=== PATIENT | female | born 1980 | race African-American/Black ===

== ENCOUNTER 2016-03-16 08:00 | Emergency (ER) | payer OTHER ==
[2016-03-16 08:12] VITALS: TEMP 98; BMI 21.6
--- NOTE | 2016-03-16 09:08 | PDOC ---
History of Present Illness - General Chief Complaint: Chest Pain Stated Complaint: CHEST PAIN Time Seen by Provider: 03/16/16 08:34 History Source: Patient Exam Limitations: No Limitations - History of Present Illness Initial Comments: CHIEF COMPLAINT: 36 y/o afebrile female with no significant PMH c/o chest pain this morning. HISTORY OF PRESENT ILLNESS: The patient states while going to the bathroom this morning she began feeling sharp pain in her chest and points to her epigastric region. She states the pain travels up her sternum. She denies dizziness, [place], f/c, n/v/d, SOB, cough, abd pain, back pain, hematuria, dysuria. Vital signs on arrival are within normal limits. REVIEW OF SYSTEMS: GENERAL/CONSTITUTIONAL: No fever/chills. No weakness. No weight change. HEAD, EYES, EARS, NOSE AND THROAT: No change in vision. No ear pain or discharge. No sore throat. CARDIOVASCULAR: +chest pain. No shortness of breath. RESPIRATORY: No cough, wheezing, or hemoptysis. GASTROINTESTINAL: No abd pain, nausea, vomiting, diarrhea. GENITOURINARY: No dysuria, frequency, or change in urination. MUSCULOSKELETAL: No joint or muscle swelling or pain. No neck or back pain. SKIN: No rash or easy bruising. NEUROLOGIC: No headache, vertigo, loss of consciousness, or loss of sensation. PSYCHIATRIC: No depression or anxiety. ENDOCRINE: No increased thirst. No abnormal weight change. HEMATOLOGIC/LYMPHATIC: No anemia, easy bleeding, or history of blood clots. ALLERGIC/IMMUNOLOGIC: No hives or skin allergy. No latex allergy. PHYSICAL EXAM: GENERAL: The patient is awake, alert, and fully oriented, in no acute distress. She is sleeping in the ER bed. HEAD: Normal with no signs of trauma. ENT: Pupils equal, round and reactive to light, extraocular movements intact, sclera anicteric, conjunctiva clear. Neck supple. LUNGS: Clear to auscultation bilaterally. Normal excursion. No respiratory distress or use of accessory muscles. CHEST: Reproducible pain with palpation of anterior sternum and epigastric region. CV: RRR, S1/S2, no MRG. Cap refill < 2 sec. ABDOMEN: Soft, non-distended, non-tender even to deep palpation, no hepatomegaly or splenomegaly, no masses. EXTREMITIES: Normal range of motion, no edema. NEUROLOGICAL: Normal speech, normal gait. CN II-XII grossly intact. PSYCH: Normal mood, normal affect. SKIN: Warm, dry, normal turgor, no rashes or lesions noted. Past History - Past Medical History Allergies/Adverse Reactions: Allergies Allergy/AdvReac Type Severity Reaction Status Date / Time No Known Allergies Allergy Verified 03/16/16 08:10 Home Medications: Ambulatory Orders Vit Calc,Iron,Folic [ Vitamins] 1 each PO DAILY 03/16/16 Anemia: No Asthma: No Cancer: No Cardiac Disorders: No CVA: No COPD: No CHF: No Dementia: No Diabetes: No GI Disorders: No Disorders: No HTN: No Hypercholesterolemia: No Kidney Stones: No Liver Disease: No Suicide Attempt (Hx): No Seizures: No Thyroid Disease: No Other medical history: DENIES. - Reproductive History PID: No - Psycho/Social/Smoking Cessation Hx Anxiety: No Suicidal Ideation: No Smoking History: Current every day smoker Have you smoked in the past 12 months: Yes Number of Cigarettes Smoked Daily: 20 Cigars Per Day: 0 Information on smoking cessation initiated: No 'Breaking Loose' booklet given: 01/23/16 Hx Alcohol Use: No Drug/Substance Use Hx: No Substance Use Type: None Hx Substance Use Treatment: Yes ([facility]) Cardiac Specific PMH - Complaint Specific PMHX Pacemaker: No *Physical Exam - Vital Signs Last Vital Signs Temp Pulse Resp BP Pulse Ox 98 F 70 18 145/77 99 03/16/16 08:07 03/16/16 14:32 03/16/16 14:32 03/16/16 14:32 03/16/16 14:32 Heart Score/ECG Review - ECG Intrepretation Comment:: Twelve-lead EKG was performed and reviewed by Dr. Hope. There is normal sinus rhythm with a normal rate. The axis is normal. The intervals are normal. There are no ST or T wave abnormalities. Impression: Normal twelve-lead EKG ED Treatment Course - ADDITIONAL ORDERS Additional order review: Laboratory Results 03/16/16 14:36 Urine HCG, Qual Negative - Medications Given in the ED: ED Medications Discontinued Medications Generic Name Dose Route Start Last Admin Trade Name Freq PRN Reason Stop Dose Admin Ketorolac Tromethamine 60 mg 03/16/16 15:03 03/16/16 15:28 Toradol Injection - IVPUSH 03/16/16 15:04 Not Given ONCE ONE Ketorolac Tromethamine 30 mg 03/16/16 15:09 03/16/16 15:15 Toradol Injection - IVPUSH 03/16/16 15:10 30 mg ONCE ONE Administration Ranitidine HCl 300 mg 03/16/16 10:47 03/16/16 11:27 Zantac - PO 03/16/16 10:48 300 mg ONCE ONE Administration Medical Decision Making - Medical Decision Making A/P: 36 y/o female with chest pain that appears to be GI related. Plan is as follows: 1. EKG 2. hcg 3. GI cocktail EKG normal Hcg - negative IV toradol ordered The patient states she feels much better and all of her pain has gone. Suspect musculoskeletal chest pain and GERD. Will discharge to home with supportive care instructions. Suggested she return to the ER with any worsening or concerning symptoms. The patient verbalizes understanding of all instructions, has no further questions and is awaiting discharge. *DC/Admit/Observation/Transfer Diagnosis at time of Disposition: Musculoskeletal chest pain, Gastroesophageal reflux disease - Discharge Dispostion Disposition: HOME Condition at time of disposition: Improved - Patient Instructions Printed Discharge Instructions: DI for Musculoskeletal Pain, DI for Atypical Chest Pain, GERD Diet, DI for Gastroesophageal Reflux Disease (GERD) Additional Instructions: Discharge Instructions: -Take tylenol for your chest pain -Take zantac if needed for upper abd pain -Follow up with your doctor within 1 week -Return to the ER immediately with any worsening or concerning symptoms
[2016-03-16] MEDS ORDERED: RANITIDINE HCL 150 MG TABLET (FP) PO ONE (10:47)
[2016-03-16] MEDS ORDERED: RANITIDINE HCL 150 MG TABLET (FP) ONE (11:20)
[2016-03-16 14:33] VITALS: PULSE 70
[2016-03-16] MEDS ORDERED: KETOROLAC TROMETHAMINE 60 MG/2 ML VIAL IVPUSH ONE (15:03)
[2016-03-16] MEDS ORDERED: KETOROLAC TROMETHAMINE 30 MG/1 ML VIAL ONE (15:09)
[2016-03-16] MEDS ORDERED: KETOROLAC TROMETHAMINE 30 MG/1 ML VIAL IVPUSH ONE (15:09)
[2016-03-16 16:46] VITALS: BP 136/68
--- NOTE | 2016-03-17 13:07 | EKG ---
Test Reason : Blood Pressure : / mmHG Vent. Rate : 071 BPM Atrial Rate : 071 BPM P-R Int : 148 ms QRS Dur : 102 ms QT Int : 416 ms P-R-T Axes : 050 044 038 degrees QTc Int : 452 ms NORMAL SINUS RHYTHM WITH SINUS ARRHYTHMIA POSSIBLE LEFT ATRIAL ENLARGEMENT LEFT VENTRICULAR HYPERTROPHY ABNORMAL ECG NO PREVIOUS ECGS AVAILABLE Confirmed by EZIO MORALES MD ([id number]) on 03/17/2016 1:07:18 PM Referred By: Overread By: EZIO MORALES MD
== END 2016-03-16 16:51 | disposition home or self-care (01) ==
LOC: JER 08:00
PROC: 3E0333Z Introduction of Anti-inflammatory into Peripheral Vein, Percutaneous Approach (ICD-10-PCS; principal; 2016-03-16)
DX: K21.9 Gastro-esophageal reflux disease without esophagitis (principal); R07.89 Other chest pain
CPT/HCPCS: 84703; 93005; 93010; 96374; 99285-25

== ENCOUNTER 2016-12-11 14:37 | Emergency (ER) | payer OTHER ==
[2016-12-11 14:46] VITALS: TEMP 98.6; BMI 21.6
--- NOTE | 2016-12-11 15:02 | PDOC ---
History of Present Illness - General Chief Complaint: Wound Infection Stated Complaint: SPIDER BITE Time Seen by Provider: 12/11/16 15:02 - History of Present Illness Initial Comments: 12/11/16 15:02 Ms. German is a 36 yo female with no significant past medical history who presents to the emergency department complaining of a "spider bite" in her upper right thigh. She says that she first noticed a small bite in this location on Thursday that progressed to about 3 inches in diameter. Yesterday she attempted to express fluid and was able to get minimal white pus out of it. She complains of subjective warmth / fevers. The patient denies chest pain, shortness of breath, headache and dizziness. Denies chills, nausea, vomit, diarrhea and constipation. Denies dysuria, frequency, urgency and hematuria. Allergies: NKDA Past surgical history:Denies Past History - Past Medical History Allergies/Adverse Reactions: Allergies Allergy/AdvReac Type Severity Reaction Status Date / Time No Known Allergies Allergy Verified 12/11/16 14:42 Home Medications: Ambulatory Orders Sulfamethoxazole/Trimethoprim [Bactrim Ds -] 1 tab PO BID #20 tablet 12/11/16 Anemia: No Asthma: No Cancer: No Cardiac Disorders: No CVA: No COPD: No CHF: No Dementia: No Diabetes: No GI Disorders: No Disorders: No HTN: No Hypercholesterolemia: No Kidney Stones: No Liver Disease: No Seizures: No Thyroid Disease: No - Reproductive History PID: No - Suicide/Smoking/Psychosocial Hx Smoking History: Current every day smoker Have you smoked in the past 12 months: Yes Number of Cigarettes Smoked Daily: 20 Cigars Per Day: 0 Information on smoking cessation initiated: No 'Breaking Loose' booklet given: 01/23/16 Hx Alcohol Use: No Drug/Substance Use Hx: No Substance Use Type: None Hx Substance Use Treatment: Yes ([facility]) Review of Systems - Review of Systems Comments:: 12/11/16 15:02 GENERAL/CONSTITUTIONAL: No fever or chills. No weakness. HEAD, EYES, EARS, NOSE AND THROAT: No change in vision. No ear pain or discharge. No sore throat. CARDIOVASCULAR: No chest pain or shortness of breath RESPIRATORY: No cough, wheezing, or hemoptysis. GASTROINTESTINAL: No nausea, vomiting, diarrhea or constipation. GENITOURINARY: No dysuria, frequency, or change in urination. MUSCULOSKELETAL: +Painful Right leg infection. No joint or muscle swelling. No neck or back pain. SKIN: No rash NEUROLOGIC: No headache, vertigo, loss of consciousness, or change in strength/ sensation. ENDOCRINE: No increased thirst. No abnormal weight change HEMATOLOGIC/LYMPHATIC: No anemia, easy bleeding, or history of blood clots. ALLERGIC/IMMUNOLOGIC: No hives or skin allergy. *Physical Exam - Vital Signs Last Vital Signs Temp Pulse Resp BP Pulse Ox 98.6 F 89 20 132/78 99 12/11/16 14:43 12/11/16 14:43 12/11/16 14:43 12/11/16 14:43 12/11/16 14:43 - Physical Exam Comments: 12/11/16 15:02 GENERAL: Awake, alert, and fully oriented, in no acute distress HEAD: No signs of trauma, normocephalic, atraumatic EYES: PERRLA, EOMI, sclera anicteric, conjunctiva clear ENT: Auricles normal inspection, hearing grossly normal, nares patent, oropharynx clear without exudates. Moist mucosa NECK: Normal ROM, supple, no lymphadenopathy, JVD, or masses LUNGS: No distress, speaks full sentences, clear to auscultation bilaterally HEART: Regular rate and rhythm, normal S1 and S2, no murmurs, rubs or gallops, peripheral pulses normal and equal bilaterally. ABDOMEN: Soft, nontender, normoactive bowel sounds. No guarding, no rebound. No masses EXTREMITIES: +Right upper thigh fluctuant abscess measuring approximately 3 inches in diameter on the lateral portion of the RLE. Warm to touch. Normal inspection, Normal range of motion, no edema. No clubbing or cyanosis. NEUROLOGICAL: Cranial nerves II through XII grossly intact. Normal speech, normal gait, no focal sensorimotor deficits SKIN: Warm, Dry, normal turgor, no rashes or lesions noted. Procedures - Incision and Drainage I&D Site: Right: Leg Anesthesia: 1% Lidocaine Volume(ml): 4 Iodinated Packin/ in Medical Decision Making - Medical Decision Making 12/11/16 15:47 Ms. German presents for evaluation of her leg abscess. *DC/Admit/Observation/Transfer Diagnosis at time of Disposition: wound - Discharge Dispostion Disposition: HOME - Prescriptions Prescriptions: Sulfamethoxazole/Trimethoprim [Bactrim Ds -] 1 tab PO BID #20 tablet - Referrals Referrals: STAFF,NOT ON [Primary Care Provider] -
--- NOTE | 2016-12-11 15:04 | PDOC ---
History of Present Illness - General Chief Complaint: Wound Infection Stated Complaint: SPIDER BITE Time Seen by Provider: 12/11/16 15:02 Past History - Past Medical History Allergies/Adverse Reactions: Allergies Allergy/AdvReac Type Severity Reaction Status Date / Time No Known Allergies Allergy Verified 12/11/16 14:42 Home Medications: Ambulatory Orders Vit Calc,Iron,Folic [ Vitamins] 1 each PO DAILY 03/16/16 Ondansetron [Zofran *Odt*] 8 mg SL TID PRN #21 od.tablet 07/25/16 Anemia: No Asthma: No Cancer: No Cardiac Disorders: No CVA: No COPD: No CHF: No Dementia: No Diabetes: No GI Disorders: No Disorders: No HTN: No Hypercholesterolemia: No Kidney Stones: No Liver Disease: No Seizures: No Thyroid Disease: No - Reproductive History PID: No - Suicide/Smoking/Psychosocial Hx Smoking History: Current every day smoker Have you smoked in the past 12 months: Yes Number of Cigarettes Smoked Daily: 20 Cigars Per Day: 0 Information on smoking cessation initiated: No 'Breaking Loose' booklet given: 01/23/16 Hx Alcohol Use: No Drug/Substance Use Hx: No Substance Use Type: None Hx Substance Use Treatment: Yes ([facility]) *Physical Exam - Vital Signs Last Vital Signs Temp Pulse Resp BP Pulse Ox 98.6 F 89 20 132/78 99 12/11/16 14:43 12/11/16 14:43 12/11/16 14:43 12/11/16 14:43 12/11/16 14:43
[2016-12-11] MEDS ORDERED: LIDOCAINE HCL 1%, 10 MG/ML (20ML VIAL) ONE (16:23)
[2016-12-11] MEDS ORDERED: LIDOCAINE HCL 1%, 10 MG/ML (50 mL VIAL) SQ ONE (16:23)
[2016-12-11] MEDS ORDERED: SULFAMETHOXAZOLE/TRIMETHOPRIM 400MG/80MG S.S. TABLET PO ONE (17:29)
[2016-12-11] MEDS ORDERED: SULFAMETHOXAZOLE/TRIMETHOPRIM 800MG/160MG D.S. TABLET ONE (17:30)
[2016-12-11 17:52] VITALS: BP 121/68; PULSE 72
--- NOTE | 2016-12-13 14:09 | PDOC ---
Attending Attestation - Resident Resident Name: Devon Rivera - HPI HPI: 12/13/16 14:05 Pt presents to the ED complaining of abscess to the R flank. Denies systemic complaints. - Physicial Exam PE: 12/13/16 14:06 Agree with above exam. 3 cm abscess to left flank - Medical Decision Making 12/13/16 14:07 pt presented to the ED with abscess without signs of systemic infection. I and D performed in the Ed. Will discharge home.
== END 2016-12-11 17:52 | disposition home or self-care (01) ==
LOC: JER 14:37
PROC: 0H9KXZZ Drainage of Right Lower Leg Skin, External Approach (ICD-10-PCS; principal; 2016-12-11)
DX: L02.415 Cutaneous abscess of right lower limb (principal); W57.XXXA Bitten or stung by nonvenomous insect and other nonvenomous arthropods, initial encounter; Y93.89 Activity, other specified; Y92.89 Other specified places as the place of occurrence of the external cause; Y99.8 Other external cause status
CPT/HCPCS: 99281-25

== ENCOUNTER 2018-09-13 10:54 | Inpatient (IN) | payer OTHER ==
[2018-09-13 13:04] VITALS: BMI 22.9
--- NOTE | 2018-09-13 15:07 | HP ---
COWS - Scale Resting Pulse: 0= NC 80 or Below Sweatin= No chills or Flushing Restless Observation: 1= Difficult to Sit Still Pupil Size: 0= Normal to Room Light Bone or Joint Aches: 1= Mild Discomfort Runny Nose/ Eye Tearin= None GI Upset > 30mins: 1= Stomach Cramp Tremor Observation: 2= Slight Tremor Visible Yawning Observation: 1= 1-2x During Session Anxiety or Irritability: 1=Feels Anxious/Irritable Goose Flesh Skin: 3=Piloerection COWS Score: 10 CIWA Score - Admission Criteria [facility] Guidelines: Admission for Medically Managed Detox: Requires at least one of the followin. CIWA greater than 12 2. Seizures within the past 24 hours 3. Delirium tremens within the past 24 hours 4. Hallucinations within the past 24 hours 5. Acute intervention needed for co occurring medical disorder 6. Acute intervention needed for co occurring psychiatric disorder 7. Severe withdrawal that cannot be handled at a lower level of care (continued vomiting, continued diarrhea, abnormal vital signs) requiring intravenous medication and/or fluids 8. Admission ROS [facility] Chief Complaint: 38 y/o with hx ovarian CA, eczema, who presents for detox from heroin. Last use of heroin was this AM. Uses 20 bags/time. Spends 200-300 dollars at a time for it. Used intranasally. Doesn't use intravenously. Longest sobriety five years. Has never overdosed; no suicidal or homicide attempts previously. Uses two bags of marijuana a day. PMH: ovarin CA, eczema PsxH: none meds: none allergies: NKDA FH: none SH: lives in a private house in [place]. smokes 1 ppd cigarettes x 10 yrs. denies alcohol use. uses heroin as above Allergies/Adverse Reactions: Allergies Allergy/AdvReac Type Severity Reaction Status Date / Time No Known Allergies Allergy Verified 09/13/18 12:59 History of Present Illness: 38 y/o F with hx ovarian CA ( 1 round of chemotherapy in past; d/c due to side effect) and eczema who presents for heroin detox. Was in detox last in 2017 and rehab in 2017. Exam Limitations: No Limitations - Ebola screening Have you traveled outside of the country in the last 21 days: No Have you had contact with anyone from an Ebola affected area: No Do you have a fever: No - Review of Systems Constitutional: Loss of Appetite EENT: reports: No Symptoms Reported Respiratory: reports: No Symptoms reported Cardiac: reports: No Symptoms Reported GI: reports: No Symptoms Reported : reports: No Symptoms Reported Musculoskeletal: reports: No Symptoms Reported Integumentary: reports: Dryness Neuro: reports: No Symptoms reported Endocrine: reports: No Symptoms Reported Hematology: reports: No Symptoms Reported Psychiatric: reports: Agitated, Anxious Patient History - Patient Medical History Hx Anemia: No Hx Asthma: No Hx Chronic Obstructive Pulmonary Disease (COPD): No Hx Cancer: No Hx Cardiac Disorders: No Hx Congestive Heart Failure: No Hx Hypertension: No Hx Hypercholesterolemia: No Hx Pacemaker: No HX Cerebrovascular Accident: No Hx Seizures: No Hx Dementia: No Hx Diabetes: No Hx Gastrointestinal Disorders: No Hx Liver Disease: No Hx Genitourinary Disorders: No Hx Sexually Transmitted Disorders: No Hx Renal Disease (ESRD): No Hx Thyroid Disease: No Hx Human Immunodeficiency Virus (HIV): No Hx Hepatitis C: No Hx Depression: Yes (DENIES/ SI/HI) Hx Suicide Attempt: No Hx Bipolar Disorder: No Hx Schizophrenia: No Other Medical History: ovarian cancer, eczema - Patient Surgical History Past Surgical History: No - PPD History Documented Results: Negative w/o proof Date: 01/25/16 Results: 0mm PPD to be Administered?: No - Reproductive History Patient is a Female of Child Bearing Age (11 -55 yrs old): Yes Last Menstrual Period: 08/14/18 Patient : No - Smoking Cessation Smoking history: Current every day smoker Have you smoked in the past 12 months: Yes Aproximately how many cigarettes per day: 20 Cigars Per Day: 0 Hx Chewing Tobacco Use: No Initiated information on smoking cessation: Yes 'Breaking Loose' booklet given: 09/13/18 - Substance & Tx. History Hx Alcohol Use: No Hx Substance Use: Yes Substance Use Type: Heroin, Marijuana Hx Substance Use Treatment: Yes (at [facility] for detox and rehab 2017 ) - Substances abused Heroin Substance route: Inhalation Frequency: Daily Amount used: 40 bags Age of first use: 20 Date of last use: 09/13/18 Marijuana/Hashish Substance route: Smoking Frequency: Daily Amount used: 2 bags Age of first use: 20 Date of last use: 09/12/18 Family Disease History - Family Disease History Family History: Denies Family Disease History: Other: Father ( AIDS), Mother (HIV) Admission Physical Exam [facility] - Vital Signs Vital Signs: Vital Signs - 24 hr 09/13/18 13:00 Temperature 97 F L Pulse Rate 79 Respiratory 20 Rate Blood Pressure 127/85 - Physical General Appearance: Yes: Within Normal Limits, Thin, Irritable, Anxious HEENTM: Yes: Normocephalic Respiratory: Yes: Within Normal Limits, Other (+poor inspiratory effort) Neck: Yes: Supple Breast: Yes: Breast Exam Deferred Cardiology: Yes: Tachycardia Abdominal: Yes: Within Normal Limits Genitourinary: Yes: Within Normal Limits Back: Yes: Muscle Spasm Musculoskeletal: Yes: full range of Motion Extremities: Yes: Other (+L anterior portion of ankle with minor swelling, TTP) Neurological: Yes: Within Normal Limits Integumentary: Yes: Dry, Warm - Diagnostic (1) Heroin withdrawal Current Visit: Yes Status: Acute (2) Marijuana dependence Current Visit: Yes Status: Acute (3) Ovarian cancer Current Visit: Yes Status: Acute Cleared for Admission [facility] - Detox or Rehab [facility] Level of Care: Medically Managed Detox Regimen/Protocol: Methadone Breathalyzer - Breathalyzer Breathalyzer: 0 Urine Drug Screen - Test Device Lot number: [id number] Expiration date: 05/13/20 - Control Is test valid?: Yes - Results Drug screen NEGATIVE: No Urine drug screen results: THC-Marijuana, ANURADHA-Cocaine, FEN-Fentanyl, MOP-Opiates , BZO-Benzodiazepines Inpatient Rehab Admission - Rehab Decision to Admit Inpatient rehab admission?: No
[2018-09-13] MEDS ORDERED: cloNIDine HCL 0.1 MG TABLET PO PRN (15:16)
[2018-09-13] MEDS ORDERED: IBUPROFEN 400 MG TABLET (FP) PO PRN (15:17)
[2018-09-13] MEDS ORDERED: MENTHOL/PHENOL 1 EACH UD MM PRN (15:17)
[2018-09-13] MEDS ORDERED: BISMUTH SUBSALICYLATE 524 MG/30 ML UD PO PRN (15:17)
[2018-09-13] MEDS ORDERED: ACETAMINOPHEN 325 MG TABLET (FP) PO PRN ×2 (15:17)
[2018-09-13] MEDS ORDERED: MAG HYDROX/AL HYDROX/SIMETH 30 ML UNIT-DOSE CUP PO PRN (15:17)
[2018-09-13] MEDS ORDERED: MAGNESIUM HYDROX 2400MG/30ML ORAL SUSPENSION 30 ML CUP PO PRN (15:17)
[2018-09-13] MEDS ORDERED: MAGNESIUM CITRATE 300 ML BOTTLE PO PRN (15:17)
[2018-09-13] MEDS ORDERED: HYDROCORTISONE 0.5% TOPICAL OINTMENT TUBE TP PRN (15:30)
[2018-09-13] MEDS ORDERED: HYDROCORTISONE 1% TOPICAL OINT 30 GM TUBE TP PRN (16:48)
[2018-09-13] MEDS ORDERED: METHADONE HCL 10 MG TABLET (FOR DETOX USE ONLY) PO ONE (17:00)
[2018-09-13 18:13] LABS: HEMATOCRIT 30.7 % (32.4-45.2); HEMOGLOBIN 9.9 GM/dL (10.7-15.3); MCH 25.3 pg (25.7-33.7); MCHC 32.4 g/dl (32.0-36.0); MEAN CELL VOLUME 78.3 fl (80-96); MEAN PLT VOLUME 7.3 fl (7.5-11.1); PLATELET COUNT 219 K/MM3 (134-434); RBC 3.92 M/mm3 (3.60-5.2); WHITE BLOOD COUNT 3.8 K/mm3 (4.0-10.0)
[2018-09-13 18:21] LABS: ALBUMIN 3.9 g/dl (3.4-5.0); BILIRUBIN,TOTAL 0.5 mg/dL (0.2-1); BLOOD UREA NITROGEN 10.2 mg/dL (7-18); CALCIUM 8.8 mg/dL (8.5-10.1); CREATININE 0.8 mg/dL (0.55-1.3); POTASSIUM 3.4 mmol/L (3.5-5.1); TOT PROT 7.5 g/dl (6.4-8.2)
[2018-09-13] MEDS: METHOCARBAMOL 500 MG TABLET PO PRN (22:28)
[2018-09-13] MEDS: MELATONIN 5 MG TABLETS PO PRN (22:28)
[2018-09-13] MEDS: THIAMINE HCL 100 MG TABLET (FP) PO SCH (22:28)
[2018-09-13] MEDS: hydrOXYzine PAMOATE 25 MG CAPSULE (FP) PO PRN (22:28)
[2018-09-14] MEDS ORDERED: METHADONE (DETOX) 20 MG, METHADONE (DETOX) 5 MG PO ONE ×2 (10:00→10:25)
[2018-09-14] MEDS ORDERED: METHADONE HCL 10 MG TABLET (FOR DETOX USE ONLY) ONE (11:17)
[2018-09-14] MEDS ORDERED: METHADONE HCL 5 MG TABLET (FOR DETOX USE ONLY) ONE (11:17)
[2018-09-14] MEDS: PRENATAL VITAMINS W/ FOLIC ACID TABLET (FP) PO SCH (11:29)
--- NOTE | 2018-09-14 13:01 | PN ---
BHS COWS - Scale Resting Pulse: 0= ID 80 or Below Sweatin=Flushed/Facial Moisture Restless Observation: 0= Sits Still Pupil Size: 0= Normal to Room Light Bone or Joint Aches: 1= Mild Discomfort Runny Nose/ Eye Tearin= Nasal Congestion GI Upset > 30mins: 0= None Tremor Observation of Outstretched Hands: 1= Tremor [place], Not Seen Yawning Observation: 1= 1-2x During Session Anxiety or Irritability: 1=Feels Anxious/Irritable Goose Flesh Skin: 0=Smooth Skin COWS Score: 7 BHS Progress Note (SOAP) Subjective: sweats shakes interrupted sleep body aches Objective: 09/14/18 14:32 Vital Signs Temperature 97.5 F L 09/14/18 13:28 Pulse Rate 71 09/14/18 13:28 Respiratory Rate 18 09/14/18 13:28 Blood Pressure 135/87 09/14/18 13:28 O2 Sat by Pulse Oximetry (%) Laboratory Tests 09/13/18 09/13/18 09/13/18 15:30 15:30 15:30 WBC 3.8 L RBC 3.92 Hgb 9.9 L Hct 30.7 L MCV 78.3 L MCH 25.3 L MCHC 32.4 RDW 17.0 H Plt Count 219 D MPV 7.3 L Sodium 137 Potassium 3.4 L Chloride 105 Carbon Dioxide 28 Anion Gap 4 L BUN 10.2 Creatinine 0.8 Est GFR (CKD-EPI)AfAm 109.16 Est GFR (CKD-EPI)NonAf 94.18 Random Glucose 109 H Calcium 8.8 Total Bilirubin 0.5 AST 8 L ALT 18 Alkaline Phosphatase 67 Total Protein 7.5 Albumin 3.9 RPR Titer Nonreactive labs noted potassium minimal low 3.4; 20meq x 2 days aaox3 lying in bed no acute distress Assessment: 09/14/18 14:33 withdrawal sx Plan: continue detox increase fluids
--- NOTE | 2018-09-14 13:22 | PN ---
MARLENY Progress Note Note: i personally present,review,plan for treatment,history and physical examination and concurred and agreed with Dr.Abbi Lozano,patient need inpatient detox,medical manage and opiate regimen
--- NOTE | 2018-09-14 13:47 | EKG ---
Test Reason : Blood Pressure : / mmHG Vent. Rate : 069 BPM Atrial Rate : 069 BPM P-R Int : 182 ms QRS Dur : 104 ms QT Int : 406 ms P-R-T Axes : 051 045 027 degrees QTc Int : 435 ms NORMAL SINUS RHYTHM POSSIBLE LEFT ATRIAL ENLARGEMENT LEFT VENTRICULAR HYPERTROPHY ABNORMAL ECG WHEN COMPARED WITH ECG OF 16-MAR-2016 08:10, NO SIGNIFICANT CHANGE WAS FOUND Confirmed by MD SOLEDAD, VIKTOR ([id number]) on 09/14/2018 1:47:17 PM Referred By: CHAS ROB Confirmed By:VIKTOR ROWE MD
[2018-09-14] MEDS: POTASSIUM CHLORIDE TABS 20 MEQ TABLET.ER (FP) PO SCH (15:14)
[2018-09-14] MEDS: THIAMINE HCL 100 MG TABLET (FP) PO SCH (22:14)
[2018-09-14] MEDS: METHOCARBAMOL 500 MG TABLET PO PRN (22:14)
[2018-09-14] MEDS: hydrOXYzine PAMOATE 25 MG CAPSULE (FP) PO PRN (22:15)
[2018-09-14] MEDS: MELATONIN 5 MG TABLETS PO PRN (22:15)
[2018-09-15 09:13] LABS: EPI CELLS 30.5 /HPF (0-5/HPF); HYALINE CASTS 23 /lpf (0-8); URINE APPEARANCE TURBID; URINE BACTERIA 215.3 /hpf (NEGATIVE); URINE BILIRUBIN NEGATIVE (NEGATIVE); URINE COLOR DK YELLOW; URINE GLUCOSE (UA) NEGATIVE (NEGATIVE); URINE KETONE NEGATIVE (NEGATIVE); URINE LEUK ESTERASE TRACE (NEGATIVE); URINE NITRITE NEGATIVE (NEGATIVE); URINE PROTEIN NEGATIVE (NEGATIVE); URINE RBC 5 /hpf (0-4); URINE UROBILINOGEN 0.2 mg/dL (0.2-1.0); URINE WBC 16 /hpf (0-5)
[2018-09-15 09:31] LABS: URINE CRYSTALS AMOPRPHOUS URATES /hpf
[2018-09-15] MEDS ORDERED: METHADONE HCL 10 MG TABLET (FOR DETOX USE ONLY) PO ONE (10:00)
[2018-09-15] MEDS: POTASSIUM CHLORIDE TABS 20 MEQ TABLET.ER (FP) PO SCH (10:34)
[2018-09-15] MEDS: PRENATAL VITAMINS W/ FOLIC ACID TABLET (FP) PO SCH (10:34)
--- NOTE | 2018-09-15 15:15 | PN ---
BHS COWS - Scale Resting Pulse: 0= CA 80 or Below Sweatin= Chills/Flushing Restless Observation: 0= Sits Still Pupil Size: 0= Normal to Room Light Bone or Joint Aches: 1= Mild Discomfort Runny Nose/ Eye Tearin= Nasal Congestion GI Upset > 30mins: 0= None Tremor Observation of Outstretched Hands: 1= Tremor [place], Not Seen Yawning Observation: 0= None Anxiety or Irritability: 2=Irritable/Anxious Goose Flesh Skin: 0=Smooth Skin (1) COWS Score: 6 BHS Progress Note (SOAP) Subjective: ANXIETY, SWEATS/CHILLS,INTERMITTENT SLEEP. Objective: 09/15/18 15:12 Vital Signs - 24 hr 09/14/18 09/14/18 09/15/18 17:32 21:34 03:30 Temperature 98.4 F 98.2 F Pulse Rate 76 69 Respiratory 18 18 16 Rate Blood Pressure 145/76 137/80 09/15/18 09/15/18 09/15/18 08:27 09:46 13:25 Temperature 99.1 F 97.8 F 96.5 F L Pulse Rate 71 66 80 Respiratory 16 18 18 Rate Blood Pressure 138/79 155/78 146/94 Laboratory Tests 09/13/18 09/13/18 09/13/18 15:30 15:30 15:30 WBC 3.8 L RBC 3.92 Hgb 9.9 L Hct 30.7 L MCV 78.3 L MCH 25.3 L MCHC 32.4 RDW 17.0 H Plt Count 219 D MPV 7.3 L Sodium 137 Potassium 3.4 L Chloride 105 Carbon Dioxide 28 Anion Gap 4 L BUN 10.2 Creatinine 0.8 Est GFR (CKD-EPI)AfAm 109.16 Est GFR (CKD-EPI)NonAf 94.18 Random Glucose 109 H Calcium 8.8 Total Bilirubin 0.5 AST 8 L ALT 18 Alkaline Phosphatase 67 Total Protein 7.5 Albumin 3.9 Urine Color Urine Appearance Urine pH Ur Specific [place] Urine Protein Urine Glucose (UA) Urine Ketones Urine Blood Urine Nitrite Urine Bilirubin Urine Urobilinogen Ur Leukocyte Esterase Urine WBC (Auto) Urine RBC (Auto) Urine Casts (Auto) U Pathogenic Cast Auto U Epithel Cells (Auto) Urine Crystals (Auto) Urine Bacteria (Auto) RPR Titer Nonreactive 09/14/18 08:50 WBC RBC Hgb Hct MCV MCH MCHC RDW Plt Count MPV Sodium Potassium Chloride Carbon Dioxide Anion Gap BUN Creatinine Est GFR (CKD-EPI)AfAm Est GFR (CKD-EPI)NonAf Random Glucose Calcium Total Bilirubin AST ALT Alkaline Phosphatase Total Protein Albumin Urine Color Dk yellow Urine Appearance Turbid Urine pH 5.0 D Ur Specific [place] 1.031 Urine Protein Negative Urine Glucose (UA) Negative Urine Ketones Negative Urine Blood Negative Urine Nitrite Negative Urine Bilirubin Negative Urine Urobilinogen 0.2 Ur Leukocyte Esterase Trace Urine WBC (Auto) 16 Urine RBC (Auto) 5 Urine Casts (Auto) 23 U Pathogenic Cast Auto None seen U Epithel Cells (Auto) 30.5 Urine Crystals (Auto) Amoprphous urates Urine Bacteria (Auto) 215.3 RPR Titer K+ =3.4 Assessment: 09/15/18 15:13 WITHDRAWALS SX BORDERLINE HYPOKALEMIA Plan: CONTINUE DETOX ON [facility]
[2018-09-15] MEDS: THIAMINE HCL 100 MG TABLET (FP) PO SCH (22:17)
[2018-09-15] MEDS: MELATONIN 5 MG TABLETS PO PRN (22:17)
[2018-09-16] MEDS ORDERED: METHADONE HCL 5 MG TABLET (FOR DETOX USE ONLY) ONE (09:12)
[2018-09-16] MEDS ORDERED: METHADONE HCL 10 MG TABLET (FOR DETOX USE ONLY) ONE (09:13)
[2018-09-16] MEDS ORDERED: METHADONE (DETOX) 10 MG, METHADONE (DETOX) 5 MG PO ONE (10:00)
[2018-09-16] MEDS: POTASSIUM CHLORIDE TABS 20 MEQ TABLET.ER (FP) PO SCH (10:34)
[2018-09-16] MEDS: PRENATAL VITAMINS W/ FOLIC ACID TABLET (FP) PO SCH (10:34)
--- NOTE | 2018-09-16 11:06 | PN ---
BHS COWS - Scale Resting Pulse: 0= [place] 80 or Below Sweatin= Chills/Flushing Restless Observation: 0= Sits Still Pupil Size: 0= Normal to Room Light Bone or Joint Aches: 0= None Runny Nose/ Eye Tearin= None GI Upset > 30mins: 0= None Tremor Observation of Outstretched Hands: 0= None Yawning Observation: 2= >3x During Session Anxiety or Irritability: 2=Irritable/Anxious Goose Flesh Skin: 0=Smooth Skin COWS Score: 5 BHS Progress Note (SOAP) Subjective: c/o chills and irritability. Objective: 09/16/18 11:06 Vital Signs 09/16/18 09/16/18 09/16/18 03:30 06:00 09:36 Temperature 98.2 F 98.1 F Pulse Rate 68 61 Respiratory 18 18 16 Rate Blood Pressure 126/81 134/93 Assessment: 09/16/18 11:06 AOX3, in no acute respiratory distress Full ROM, ambulating in the unit. withdrawal symptoms. Plan: continue detox.
[2018-09-16] MEDS: THIAMINE HCL 100 MG TABLET (FP) PO SCH (22:37)
[2018-09-16] MEDS: MELATONIN 5 MG TABLETS PO PRN (22:37)
[2018-09-16] MEDS: METHOCARBAMOL 500 MG TABLET PO PRN (22:37)
[2018-09-17] MEDS ORDERED: METHADONE HCL 10 MG TABLET (FOR DETOX USE ONLY) PO ONE (10:00)
[2018-09-17] MEDS: PRENATAL VITAMINS W/ FOLIC ACID TABLET (FP) PO SCH (10:31)
--- NOTE | 2018-09-17 11:43 | PN ---
BHS COWS - Scale Resting Pulse: 0= [place] 80 or Below Sweatin= Chills/Flushing Restless Observation: 0= Sits Still Pupil Size: 1= Pupils >than Normal Bone or Joint Aches: 0= None Runny Nose/ Eye Tearin= None GI Upset > 30mins: 0= None Tremor Observation of Outstretched Hands: 1= Tremor [place], Not Seen Yawning Observation: 0= None Anxiety or Irritability: 1=Feels Anxious/Irritable Goose Flesh Skin: 0=Smooth Skin COWS Score: 4 BHS Progress Note (SOAP) Subjective: interrupted sleep, Objective: 09/17/18 11:42 Vital Signs Temperature 97.8 F 09/17/18 06:49 Pulse Rate 55 L 09/17/18 06:49 Respiratory Rate 16 09/17/18 06:49 Blood Pressure 139/68 09/17/18 06:49 O2 Sat by Pulse Oximetry (%) Laboratory Tests 09/13/18 09/13/18 09/13/18 15:30 15:30 15:30 WBC 3.8 L RBC 3.92 Hgb 9.9 L Hct 30.7 L MCV 78.3 L MCH 25.3 L MCHC 32.4 RDW 17.0 H Plt Count 219 D MPV 7.3 L Sodium 137 Potassium 3.4 L Chloride 105 Carbon Dioxide 28 Anion Gap 4 L BUN 10.2 Creatinine 0.8 Est GFR (CKD-EPI)AfAm 109.16 Est GFR (CKD-EPI)NonAf 94.18 Random Glucose 109 H Calcium 8.8 Total Bilirubin 0.5 AST 8 L ALT 18 Alkaline Phosphatase 67 Total Protein 7.5 Albumin 3.9 Urine Color Urine Appearance Urine pH Ur Specific [place] Urine Protein Urine Glucose (UA) Urine Ketones Urine Blood Urine Nitrite Urine Bilirubin Urine Urobilinogen Ur Leukocyte Esterase Urine WBC (Auto) Urine RBC (Auto) Urine Casts (Auto) U Pathogenic Cast Auto U Epithel Cells (Auto) Urine Crystals (Auto) Urine Bacteria (Auto) RPR Titer Nonreactive 09/14/18 08:50 WBC RBC Hgb Hct MCV MCH MCHC RDW Plt Count MPV Sodium Potassium Chloride Carbon Dioxide Anion Gap BUN Creatinine Est GFR (CKD-EPI)AfAm Est GFR (CKD-EPI)NonAf Random Glucose Calcium Total Bilirubin AST ALT Alkaline Phosphatase Total Protein Albumin Urine Color Dk yellow Urine Appearance Turbid Urine pH 5.0 D Ur Specific [place] 1.031 Urine Protein Negative Urine Glucose (UA) Negative Urine Ketones Negative Urine Blood Negative Urine Nitrite Negative Urine Bilirubin Negative Urine Urobilinogen 0.2 Ur Leukocyte Esterase Trace Urine WBC (Auto) 16 Urine RBC (Auto) 5 Urine Casts (Auto) 23 U Pathogenic Cast Auto None seen U Epithel Cells (Auto) 30.5 Urine Crystals (Auto) Amoprphous urates Urine Bacteria (Auto) 215.3 RPR Titer pt aox3 , lying in bed in nad. Assessment: 09/17/18 11:44 withdrawal sx's h/o ovarian ca anemia Plan: cont. detox increase fluids f/up with hem/onc d/c in am
[2018-09-17] MEDS: hydrOXYzine PAMOATE 25 MG CAPSULE (FP) PO PRN (22:32)
[2018-09-17] MEDS: THIAMINE HCL 100 MG TABLET (FP) PO SCH (22:32)
[2018-09-17] MEDS: MELATONIN 5 MG TABLETS PO PRN (22:32)
[2018-09-18] MEDS ORDERED: METHADONE HCL 5 MG TABLET (FOR DETOX USE ONLY) PO ONE (06:00)
[2018-09-18 09:47] VITALS: BP 146/97; PULSE 72; TEMP 98.4
--- NOTE | 2018-09-18 15:40 | DS ---
[facility] Detox Discharge Summary Admission Date: 09/13/18 Discharge Date: 09/18/18 - History Present History: Cannabis Dependence, Opioid Dependence Additional Comments: Pt is medically cleared and discharged today. Pt completed her detox protocol. As per social service coordinator's notes, "Counselor met with client to discuss discharge planning. Jessenia is declining aftercare. Clinician discussed coping skills in order to increase client knowledge about relapse prevention". Pt is encouraged to follow-up with her pmd and also to follow-up with [facility] outpatient program. Pt verbalized understanding. Pt is alert and oriented x3 and in no respiratory distress. Pertinent Past History: H/O heroine and cannabis use disorder. - Physical Exam Results Vital Signs: Vital Signs Temperature 98.4 F 09/18/18 09:46 Pulse Rate 72 09/18/18 09:46 Respiratory Rate 18 09/18/18 09:46 Blood Pressure 146/97 09/18/18 09:46 O2 Sat by Pulse Oximetry (%) Vital Signs 09/18/18 09/18/18 08:08 09:46 Temperature 97.9 F 98.4 F Pulse Rate 65 72 Respiratory 16 18 Rate Blood Pressure 131/83 146/97 Lab Results WBC 3.8 K/mm3 (4.0-10.0) L 09/13/18 15:30 RBC 3.92 M/mm3 (3.60-5.2) 09/13/18 15:30 Hgb 9.9 GM/dL (10.7-15.3) L 09/13/18 15:30 Hct 30.7 % (32.4-45.2) L 09/13/18 15:30 MCV 78.3 fl (80-96) L 09/13/18 15:30 MCHC 32.4 g/dl (32.0-36.0) 09/13/18 15:30 RDW 17.0 % (11.6-15.6) H 09/13/18 15:30 Plt Count 219 K/MM3 (134-434) D 09/13/18 15:30 Sodium 137 mmol/L (136-145) 09/13/18 15:30 Potassium 3.4 mmol/L (3.5-5.1) L 09/13/18 15:30 Chloride 105 mmol/L (98-107) 09/13/18 15:30 Carbon Dioxide 28 mmol/L (21-32) 09/13/18 15:30 Anion Gap 4 MMOL/L (8-16) L 09/13/18 15:30 BUN 10.2 mg/dL (7-18) 09/13/18 15:30 Creatinine 0.8 mg/dL (0.55-1.3) 09/13/18 15:30 Random Glucose 109 mg/dL (74-106) H 09/13/18 15:30 Calcium 8.8 mg/dL (8.5-10.1) 09/13/18 15:30 Labs reviewed. Pertinent Admission Physical Exam Findings: withdrawal symptoms. - Treatment Hospital Course: Detox Protocol Followed, Detoxed Safely, Responded well, Discharged Condition Good - Medication Discharge Medications: Ambulatory Orders NK [No Known Home Medication] 09/13/18 - Diagnosis (1) GERD (gastroesophageal reflux disease) Status: Acute (2) Heroin abuse Status: Acute (3) Marijuana dependence Status: Acute (4) Nicotine dependence Status: Acute Qualifiers: Nicotine product type: cigarettes Substance use status: uncomplicated Qualified Code(s): F17.210 - Nicotine dependence, cigarettes, uncomplicated (5) Opioid dependence with withdrawal Status: Acute (6) Ovarian cancer Status: Acute - AMA Did Patient Leave Against Medical Advice: No
== END 2018-09-18 09:15 | disposition home or self-care (01) | DRG 773 ==
LOC: YASAS 10:54 → Y6N 16:22
PROVIDERS: ADMIT Surgery; ATTEND Surgery
PROC: HZ2ZZZZ Detoxification Services for Substance Abuse Treatment (ICD-10-PCS; principal; 2018-09-13)
DX: F11.23 Opioid dependence with withdrawal (principal); F12.20 Cannabis dependence, uncomplicated; F14.10 Cocaine abuse, uncomplicated; F13.10 Sedative, hypnotic or anxiolytic abuse, uncomplicated; F17.210 Nicotine dependence, cigarettes, uncomplicated; F32.9 Major depressive disorder, single episode, unspecified; K21.9 Gastro-esophageal reflux disease without esophagitis; D64.9 Anemia, unspecified; E87.6 Hypokalemia; L30.9 Dermatitis, unspecified; Z85.43 Personal history of malignant neoplasm of ovary
CPT/HCPCS: 36415; 80053; 81003; 85027; 86593; 93005; 93010; J0735

== ENCOUNTER 2019-01-11 08:07 | Inpatient (IN) | payer OTHER ==
[2019-01-11 08:46] VITALS: BMI 23.1
--- NOTE | 2019-01-11 09:42 | HP ---
"COWS - Scale Resting Pulse: 0= [place] 80 or Below Sweatin= Chills/Flushing Restless Observation: 3= Extraneous Movement Pupil Size: 0= Normal to Room Light Bone or Joint Aches: 4=Acute Joint/Muscle Pain Runny Nose/ Eye Tearin= Runny Nose/Eyes GI Upset > 30mins: 2= Nausea/Diarrhea Tremor Observation: 1= Tremor [place], Not Seen Yawning Observation: 0= None Anxiety or Irritability: 0= None Goose Flesh Skin: 0=Smooth Skin COWS Score: 13 CIWA Score Nausea/Vomitin-Int. Nausea w/Dry Heave Muscle Tremors: 1-None Visible, but [place] Anxiety: 0-No Anxiety, at Ease Agitation: 1-Slight > Activity Paroxysmal Sweats: No Perspiration Orientation: 2-Disoriented Date<2 days Tacttile Disturbances: 0-None Auditory Disturbances: 0-None Visual Disturbances: 2-Mild Sensitivity Headache: 2-Mild CIWA-Ar Total Score: 12 - Admission Criteria OASAS Guidelines: Admission for Medically Managed Detox: Requires at least one of the followin. CIWA greater than 12 2. Seizures within the past 24 hours 3. Delirium tremens within the past 24 hours 4. Hallucinations within the past 24 hours 5. Acute intervention needed for co occurring medical disorder 6. Acute intervention needed for co occurring psychiatric disorder 7. Severe withdrawal that cannot be handled at a lower level of care (continued vomiting, continued diarrhea, abnormal vital signs) requiring intravenous medication and/or fluids 8. Admitting History and Physical - Past Medical History ...LMP: 12/14/18 - Smoking History Smoking history: Former smoker Have you smoked in the past 12 months: No Aproximately how many cigarettes per day: 20 If you are a former smoker, when did you quit?: 1 yr ago - Alcohol/Substance Use Hx Alcohol Use: No Admission ROS S - HPI Allergies/Adverse Reactions: Allergies Allergy/AdvReac Type Severity Reaction Status Date / Time No Known Allergies Allergy Verified 01/11/19 08:30 History of Present Illness: This report was requested by: Marcia Palencia | Reference #: [id number] Others' Prescriptions Patient Name: Jessenia German Date: 1980 Address: [address] [place] [address] Sex: Female Rx Written Rx Dispensed Drug Quantity Days Supply Prescriber Name 05/07/2018 05/10/2018 chlordiazepoxide 25 mg capsule 26 5 Gerald Ramos MD pt here requesting detox from heroin use , claims 50 bags heroin / day via inhalation , first age of use early 20's , longest sobriety [id number] , most recent detox at this facility September 2018 , relapsed immediately after d /c , latest use this morning . PCP : 2 bags / day denies other illicits etoh - 1 bottle vodka / day x 1 month , reports tremors if not drinking , + blackouts, denies seizures , latest use 2 days ago . tobacco : 1 ppd pmhx : denies denies SI / Hi lmp Dec 2018 ages [age],7,5,4,3 with maternal GM and her brother in [facility] legal : court in October , did not go , arrest warrant in place Exam Limitations: Clinical Condition - Ebola screening Have you traveled outside of the country in the last 21 days: No Have you had contact with anyone from an Ebola affected area: No Do you have a fever: No - Review of Systems Constitutional: Loss of Appetite EENT: reports: Other (glasses) Respiratory: reports: No Symptoms reported Cardiac: reports: No Symptoms Reported GI: reports: See HPI : reports: No Symptoms Reported Musculoskeletal: reports: See HPI Integumentary: reports: No Symptoms Reported Neuro: reports: See HPI Endocrine: reports: No Symptoms Reported Psychiatric: reports: Orientated x3, Anxious, Depressed Patient History - Patient Medical History Hx Anemia: No Hx Asthma: No Hx Chronic Obstructive Pulmonary Disease (COPD): No Hx Cancer: No Hx Cardiac Disorders: No Hx Congestive Heart Failure: No Hx Hypertension: No Hx Hypercholesterolemia: No Hx Pacemaker: No HX Cerebrovascular Accident: No Hx Seizures: No Hx Dementia: No Hx Diabetes: No Hx Gastrointestinal Disorders: No Hx Liver Disease: No Hx Genitourinary Disorders: No Hx Sexually Transmitted Disorders: No Hx Renal Disease (ESRD): No Hx Thyroid Disease: No Hx Human Immunodeficiency Virus (HIV): No Hx Hepatitis C: No Hx Depression: No Hx Suicide Attempt: No Hx Bipolar Disorder: No Hx Schizophrenia: No - Patient Surgical History Past Surgical History: No - PPD History Date: 09/15/18 Results: 0mm - Reproductive History Last Menstrual Period: 08/25/18 - Smoking Cessation Smoking history: Former smoker Have you smoked in the past 12 months: No Aproximately how many cigarettes per day: 20 If you are a former smoker, when did you quit?: 1 yr ago Cigars Per Day: 0 Hx Chewing Tobacco Use: No Initiated information on smoking cessation: Yes 'Breaking Loose' booklet given: 01/11/19 - Substances abused Heroin Substance route: Inhalation Frequency: Daily Amount used: 50 bags Age of first use: 20 Date of last use: 01/10/19 Marijuana/Hashish Substance route: Smoking Frequency: Daily Amount used: 2 bags Age of first use: 20 Date of last use: 09/12/18 PCP Substance route: Smoking Frequency: Daily Amount used: 2 blunts Age of first use: 22 Date of last use: 01/10/19 Alcohol Substance route: Oral Frequency: Daily Amount used: 1 bottle of liquor Age of first use: 38 Date of last use: 01/10/19 Admission Physical Exam [facility] - Vital Signs Vital Signs: Vital Signs - 24 hr 01/11/19 08:38 Temperature 97.6 F Pulse Rate 73 Respiratory 16 Rate Blood Pressure 138/94 - Physical General Appearance: Yes: Disheveled, Mild Distress, Anxious HEENTM: Yes: EOMI, Hearing grossly Normal, Normocephalic, Normal Voice Respiratory: Yes: Chest Non-Tender, Lungs Clear, Normal Breath Sounds, No Respiratory Distress, No Accessory Muscle Use Neck: Yes: No masses,lesions,Nodules, Trachea in good position Cardiology: Yes: Regular Rhythm, Regular Rate, S1, S2, Other (EKG QTc 435 ms 09/13/18) Abdominal: Yes: Normal Bowel Sounds, Non Tender, Soft Back: Yes: Normal Inspection Musculoskeletal: Yes: full range of Motion, Gait Steady Extremities: Yes: Normal Capillary Refill, Normal Inspection, Normal Range of Motion, Non-Tender Neurological: Yes: Fully Oriented, Alert, Motor Strength 5/5, Normal Mood/Affect Integumentary: Yes: Warm, Other (skin discoloration luis ue dorsum of hands and distal FA - reprots known hx of eczema) - Diagnostic (1) Nicotine dependence Current Visit: Yes Status: Chronic Qualifiers: Nicotine product type: cigarettes Substance use status: uncomplicated Qualified Code(s): F17.210 - Nicotine dependence, cigarettes, uncomplicated (2) Opioid dependence with withdrawal Current Visit: Yes Status: Chronic (3) Alcohol abuse Current Visit: Yes Status: Acute Breathalyzer - Breathalyzer Breathalyzer: 0 Urine Drug Screen - Test Device Lot number: [id number] Expiration date: 05/13/20 - Control Is test valid?: Yes - Results Drug screen NEGATIVE: No Urine drug screen results: THC-Marijuana, ANURADHA-Cocaine, FEN-Fentanyl, MOP-Opiates , BZO-Benzodiazepines Inpatient Rehab Admission - Rehab Decision to Admit Inpatient rehab admission?: No"
[2019-01-11] MEDS ORDERED: MAG HYDROX/AL HYDROX/SIMETH 30 ML UNIT-DOSE CUP PO PRN (09:54)
[2019-01-11] MEDS ORDERED: MAGNESIUM CITRATE 300 ML BOTTLE PO PRN (09:54)
[2019-01-11] MEDS ORDERED: MAGNESIUM HYDROX 2400MG/30ML ORAL SUSPENSION 30 ML CUP PO PRN (09:54)
[2019-01-11] MEDS ORDERED: BISMUTH SUBSALICYLATE 262 MG/15 ML BTL PO PRN (09:54)
[2019-01-11] MEDS ORDERED: ACETAMINOPHEN 325 MG TABLET (FP) PO PRN ×2 (09:54)
[2019-01-11] MEDS ORDERED: IBUPROFEN 400 MG TABLET (FP) PO PRN (09:54)
[2019-01-11] MEDS ORDERED: MENTHOL/PHENOL 1 EACH UD MM PRN (09:54)
[2019-01-11] MEDS ORDERED: cloNIDine HCL 0.1 MG TABLET PO PRN (09:55)
[2019-01-11] MEDS ORDERED: METHADONE HCL 10 MG TABLET (FOR DETOX USE ONLY) PO ONE (10:30)
[2019-01-11] MEDS: PRENATAL VITAMINS W/ FOLIC ACID TABLET (FP) PO SCH (11:28)
[2019-01-11] MEDS ORDERED: PNEUMOCOCCAL 23 VACCINE 0.5 ML VIAL IM ONE (12:00)
[2019-01-11] MEDS: diazePAM 5 MG TABLET PO SCH ×2 (13:56→22:21)
[2019-01-11 14:37] LABS: HEMATOCRIT 34.1 % (32.4-45.2); HEMOGLOBIN 10.9 GM/dL (10.7-15.3); MCH 25.9 pg (25.7-33.7); MCHC 31.9 g/dl (32.0-36.0); MEAN CELL VOLUME 81.2 fl (80-96); MEAN PLT VOLUME 7.2 fl (7.5-11.1); PLATELET COUNT 262 K/MM3 (134-434); RDW 16.7 % (11.6-15.6); WHITE BLOOD COUNT 4.9 K/mm3 (4.0-10.0)
[2019-01-11 14:52] LABS: ALBUMIN 4.2 g/dl (3.4-5.0); BILIRUBIN,TOTAL 0.7 mg/dL (0.2-1); BLOOD UREA NITROGEN 14.4 mg/dL (7-18); CALCIUM 9.5 mg/dL (8.5-10.1); CREATININE 0.6 mg/dL (0.55-1.3); POTASSIUM 4.4 mmol/L (3.5-5.1); TOT PROT 7.8 g/dl (6.4-8.2)
[2019-01-11] MEDS: THIAMINE HCL 100 MG TABLET (FP) PO SCH (22:21)
[2019-01-11] MEDS: MELATONIN 5 MG TABLETS PO PRN (22:21)
[2019-01-12] MEDS: diazePAM 5 MG TABLET PO SCH ×3 (06:45→23:00)
[2019-01-12] MEDS ORDERED: METHADONE HCL 5 MG TABLET (FOR DETOX USE ONLY) ONE (09:16)
[2019-01-12] MEDS ORDERED: METHADONE HCL 10 MG TABLET (FOR DETOX USE ONLY) ONE (09:17)
[2019-01-12] MEDS ORDERED: METHADONE (DETOX) 20 MG, METHADONE (DETOX) 5 MG PO ONE (10:00)
[2019-01-12] MEDS: PRENATAL VITAMINS W/ FOLIC ACID TABLET (FP) PO SCH (10:16)
--- NOTE | 2019-01-12 10:39 | PN ---
[facility] CIWA - CIWA Score Nausea/Vomitin-No Nausea/No Vomiting Muscle Tremors: 4-Moderate,w/Arms Extend Anxiety: 4-Mod. Anxious/Guarded Agitation: 4-Moderately Restless Paroxysmal Sweats: 3 Orientation: 0-Oriented Tacttile Disturbances: 0-None Auditory Disturbances: 0-None Visual Disturbances: 0-None Headache: 0-None Present CIWA-Ar Total Score: 15 S COWS - Scale Resting Pulse: 0= [place] 80 or Below Sweatin= Chills/Flushing Restless Observation: 1= Difficult to Sit Still Pupil Size: 0= Normal to Room Light Bone or Joint Aches: 2= Severe Diffuse Aches Runny Nose/ Eye Tearin= Runny Nose/Eyes GI Upset > 30mins: 1= Stomach Cramp Tremor Observation of Outstretched Hands: 1= Tremor [place], Not Seen Yawning Observation: 1= 1-2x During Session Anxiety or Irritability: 2=Irritable/Anxious Goose Flesh Skin: 0=Smooth Skin COWS Score: 11 [facility] Progress Note (SOAP) Subjective: irritable agitation sweats shakes chills diarrhea Objective: 01/12/19 11:33 Vital Signs Temperature 97.7 F 01/12/19 09:28 Pulse Rate 72 01/12/19 09:28 Respiratory Rate 18 01/12/19 09:28 Blood Pressure 136/81 01/12/19 09:28 O2 Sat by Pulse Oximetry (%) Laboratory Tests 01/11/19 01/11/19 01/11/19 11:30 11:30 11:30 WBC 4.9 RBC 4.20 Hgb 10.9 Hct 34.1 MCV 81.2 MCH 25.9 MCHC 31.9 L RDW 16.7 H Plt Count 262 MPV 7.2 L Sodium 137 Potassium 4.4 Chloride 104 Carbon Dioxide 30 Anion Gap 3 L BUN 14.4 Creatinine 0.6 Est GFR (CKD-EPI)AfAm 134.96 Est GFR (CKD-EPI)NonAf 116.44 Random Glucose 87 Calcium 9.5 Total Bilirubin 0.7 AST 26 ALT 31 Alkaline Phosphatase 75 Total Protein 7.8 Albumin 4.2 RPR Titer Nonreactive HIV 1&2 Antibody Screen HIV P24 Antigen 01/11/19 11:30 WBC RBC Hgb Hct MCV MCH MCHC RDW Plt Count MPV Sodium Potassium Chloride Carbon Dioxide Anion Gap BUN Creatinine Est GFR (CKD-EPI)AfAm Est GFR (CKD-EPI)NonAf Random Glucose Calcium Total Bilirubin AST ALT Alkaline Phosphatase Total Protein Albumin RPR Titer HIV 1&2 Antibody Screen Negative HIV P24 Antigen Negative labs noted aaox3 ambulating no acute distress Assessment: 01/12/19 11:33 withdrawals sx Plan: continue detox increase fluids pepto prn
[2019-01-12] MEDS: diazePAM 5 MG TABLET PO PRN ×2 (11:10→17:55)
[2019-01-12] MEDS ORDERED: PNEUMOCOCCAL 23 VACCINE 0.5 ML VIAL IM ONE (12:00)
[2019-01-12] MEDS ORDERED: FLU VACCINE QUAD 60 MCG/0.5 ML (MDV 19-20) IM ONE (12:00)
[2019-01-12] MEDS ORDERED: PNEUMOC 13-VAL CONJ-DIP CRM/PF 0.5 ML DISP.SYRIN IM ONE (12:00)
[2019-01-12] MEDS: hydrOXYzine PAMOATE 25 MG CAPSULE (FP) PO PRN (23:01)
[2019-01-12] MEDS: THIAMINE HCL 100 MG TABLET (FP) PO SCH (23:04)
[2019-01-13] MEDS: diazePAM 5 MG TABLET PO SCH ×2 (06:20→18:07)
[2019-01-13] MEDS ORDERED: METHADONE HCL 10 MG TABLET (FOR DETOX USE ONLY) PO ONE (10:00)
--- NOTE | 2019-01-13 10:12 | PN ---
S CIWA - CIWA Score Nausea/Vomitin-Mild Nausea/No Vomiting Muscle Tremors: 3 Anxiety: 3 Agitation: 3 Paroxysmal Sweats: 3 Orientation: 0-Oriented Tacttile Disturbances: 0-None Auditory Disturbances: 0-None Visual Disturbances: 0-None Headache: 0-None Present CIWA-Ar Total Score: 13 S COWS - Scale Resting Pulse: 0= [place] 80 or Below Sweatin= Chills/Flushing Restless Observation: 1= Difficult to Sit Still Pupil Size: 0= Normal to Room Light Bone or Joint Aches: 1= Mild Discomfort Runny Nose/ Eye Tearin= None GI Upset > 30mins: 2= Nausea/Diarrhea Tremor Observation of Outstretched Hands: 2= Slight Tremor Visible Yawning Observation: 2= >3x During Session Anxiety or Irritability: 2=Irritable/Anxious Goose Flesh Skin: 0=Smooth Skin COWS Score: 11 S Progress Note (SOAP) Subjective: sweats shakes nausea body aches interrupted sleep Objective: 01/13/19 10:11 Vital Signs Temperature 97.1 F L 01/13/19 09:32 Pulse Rate 67 01/13/19 09:32 Respiratory Rate 17 01/13/19 09:32 Blood Pressure 108/53 L 01/13/19 09:32 O2 Sat by Pulse Oximetry (%) Laboratory Tests 01/11/19 01/11/19 01/11/19 11:30 11:30 11:30 WBC 4.9 RBC 4.20 Hgb 10.9 Hct 34.1 MCV 81.2 MCH 25.9 MCHC 31.9 L RDW 16.7 H Plt Count 262 MPV 7.2 L Sodium 137 Potassium 4.4 Chloride 104 Carbon Dioxide 30 Anion Gap 3 L BUN 14.4 Creatinine 0.6 Est GFR (CKD-EPI)AfAm 134.96 Est GFR (CKD-EPI)NonAf 116.44 Random Glucose 87 Calcium 9.5 Total Bilirubin 0.7 AST 26 ALT 31 Alkaline Phosphatase 75 Total Protein 7.8 Albumin 4.2 RPR Titer Nonreactive HIV 1&2 Antibody Screen HIV P24 Antigen 01/11/19 11:30 WBC RBC Hgb Hct MCV MCH MCHC RDW Plt Count MPV Sodium Potassium Chloride Carbon Dioxide Anion Gap BUN Creatinine Est GFR (CKD-EPI)AfAm Est GFR (CKD-EPI)NonAf Random Glucose Calcium Total Bilirubin AST ALT Alkaline Phosphatase Total Protein Albumin RPR Titer HIV 1&2 Antibody Screen Negative HIV P24 Antigen Negative labs noted aaox3 ambulating no acute distress Assessment: 01/13/19 10:12 withdrawals Plan: continue detox increase fluids sukumar montaño prn
[2019-01-13] MEDS: PRENATAL VITAMINS W/ FOLIC ACID TABLET (FP) PO SCH (10:25)
[2019-01-13] MEDS: METHOCARBAMOL 500 MG TABLET PO PRN ×2 (12:13→22:20)
[2019-01-13] MEDS: diazePAM 5 MG TABLET PO PRN ×2 (12:13→22:25)
--- NOTE | 2019-01-13 16:00 | DS ---
Physical Exam: SUBJECTIVE: Patient seen and examined OBJECTIVE: Vital Signs Period Temp Pulse Resp BP Sys/Guo Pulse Ox Last 24 Hr 97.1 F-98.2 F 67-115 16-20 102-125/52-72 PHYSICAL EXAM GENERAL: The patient is awake, alert, and fully oriented, in no acute distress. HEAD: Normal with no signs of trauma. EYES: PERRL, extraocular movements intact, sclera anicteric, conjunctiva clear. ENT: Ears normal, nares patent, oropharynx clear without exudates, moist mucous membranes. NECK: Trachea midline, full range of motion, supple. LUNGS: Breath sounds equal, clear to auscultation bilaterally, no wheezes, no crackles, no accessory muscle use. HEART: Regular rate and rhythm, S1, S2 without murmur, rub or gallop. ABDOMEN: Soft, nontender, nondistended, normoactive bowel sounds, no guarding, no rebound, no hepatosplenomegaly, no masses. EXTREMITIES: 2+ pulses, warm, well-perfused, no edema. NEUROLOGICAL: Cranial nerves II through XII grossly intact. Normal speech, gait not observed. PSYCH: Normal mood, normal affect. SKIN: Warm, dry, normal turgor, no rashes or lesions noted. LABS HOSPITAL COURSE: Date of Admission:01/11/19 Date of Discharge: 01/13/19 Discharge Summary Reason For Visit: DETOX - WALK- IN Current Active Problems Alcohol abuse (Acute) Nicotine dependence (Chronic) Opioid dependence with withdrawal (Chronic) - Instructions Diet, Activity, Other Instructions: Please follow up with primary doctors - Home Medications Comprehensive Discharge Medication List: Ambulatory Orders NK [No Known Home Medication] 09/13/18 ATTENDING PHYSICIAN STATEMENT I saw and evaluated the patient. I reviewed the resident's note and discussed the case with the resident. I agree with the resident's findings and plan as documented. SUBJECTIVE: OBJECTIVE: ASSESSMENT AND PLAN:
[2019-01-13] MEDS: THIAMINE HCL 100 MG TABLET (FP) PO SCH (22:20)
[2019-01-13] MEDS: hydrOXYzine PAMOATE 25 MG CAPSULE (FP) PO PRN (22:20)
[2019-01-14] MEDS ORDERED: diazePAM 5 MG TABLET PO ONE (06:00)
[2019-01-14] MEDS: METHOCARBAMOL 500 MG TABLET PO PRN ×2 (06:12→22:21)
[2019-01-14] MEDS ORDERED: METHADONE HCL 5 MG TABLET (FOR DETOX USE ONLY) ONE (09:03)
[2019-01-14] MEDS ORDERED: METHADONE HCL 10 MG TABLET (FOR DETOX USE ONLY) ONE (09:04)
[2019-01-14] MEDS ORDERED: METHADONE (DETOX) 10 MG, METHADONE (DETOX) 5 MG PO ONE (10:00)
[2019-01-14] MEDS: PRENATAL VITAMINS W/ FOLIC ACID TABLET (FP) PO SCH (10:32)
[2019-01-14] MEDS: hydrOXYzine PAMOATE 25 MG CAPSULE (FP) PO PRN ×2 (10:32→22:21)
[2019-01-14] MEDS ORDERED: COLLOIDAL OATMEAL 1 BAR EACH TP ONE (11:55)
--- NOTE | 2019-01-14 12:00 | PN ---
[facility] CIWA - CIWA Score Nausea/Vomitin-No Nausea/No Vomiting Muscle Tremors: 2 Anxiety: 2 Agitation: 2 Paroxysmal Sweats: 2 Orientation: 0-Oriented Tacttile Disturbances: 0-None Auditory Disturbances: 0-None Visual Disturbances: 0-None Headache: 0-None Present CIWA-Ar Total Score: 8 [facility] COWS - Scale Resting Pulse: 1= [place] 81-100 Sweatin= Chills/Flushing Restless Observation: 1= Difficult to Sit Still Pupil Size: 0= Normal to Room Light Bone or Joint Aches: 1= Mild Discomfort Runny Nose/ Eye Tearin= Nasal Congestion GI Upset > 30mins: 0= None Tremor Observation of Outstretched Hands: 1= Tremor [place], Not Seen Yawning Observation: 1= 1-2x During Session Anxiety or Irritability: 1=Feels Anxious/Irritable Goose Flesh Skin: 0=Smooth Skin COWS Score: 8 S Progress Note (SOAP) Subjective: sweats shakes i have dry/eczema cream Objective: 01/14/19 11:59 Vital Signs Temperature 98.1 F 01/14/19 09:40 Pulse Rate 86 01/14/19 09:40 Respiratory Rate 18 01/14/19 09:40 Blood Pressure 127/71 01/14/19 09:40 O2 Sat by Pulse Oximetry (%) Laboratory Tests 01/11/19 01/11/19 01/11/19 11:30 11:30 11:30 WBC 4.9 RBC 4.20 Hgb 10.9 Hct 34.1 MCV 81.2 MCH 25.9 MCHC 31.9 L RDW 16.7 H Plt Count 262 MPV 7.2 L Sodium 137 Potassium 4.4 Chloride 104 Carbon Dioxide 30 Anion Gap 3 L BUN 14.4 Creatinine 0.6 Est GFR (CKD-EPI)AfAm 134.96 Est GFR (CKD-EPI)NonAf 116.44 Random Glucose 87 Calcium 9.5 Total Bilirubin 0.7 AST 26 ALT 31 Alkaline Phosphatase 75 Total Protein 7.8 Albumin 4.2 RPR Titer Nonreactive HIV 1&2 Antibody Screen HIV P24 Antigen 01/11/19 11:30 WBC RBC Hgb Hct MCV MCH MCHC RDW Plt Count MPV Sodium Potassium Chloride Carbon Dioxide Anion Gap BUN Creatinine Est GFR (CKD-EPI)AfAm Est GFR (CKD-EPI)NonAf Random Glucose Calcium Total Bilirubin AST ALT Alkaline Phosphatase Total Protein Albumin RPR Titer HIV 1&2 Antibody Screen Negative HIV P24 Antigen Negative labs noted aaox3 ambulating no acute distress Assessment: 01/14/19 12:00 withdrawals Plan: continue detox increase fluids hydrocortizone 1%cream aveeno soap
[2019-01-14] MEDS: HYDROCORTISONE 1% TOPICAL CREAM 30 GM TUBE TP SCH ×3 (14:28→22:23)
[2019-01-14] MEDS: NICOTINE 7 MG/24 HOURS TOPICAL PATCH TD SCH (14:58)
[2019-01-14] MEDS: THIAMINE HCL 100 MG TABLET (FP) PO SCH (22:21)
[2019-01-14] MEDS: MELATONIN 5 MG TABLETS PO PRN (22:29)
[2019-01-14] MEDS ORDERED: hydrOXYzine PAMOATE 25 MG CAPSULE (FP) PO ONE (23:20)
[2019-01-14] MEDS ORDERED: hydrOXYzine PAMOATE 25 MG CAPSULE (FP) PO PRN (23:21)
[2019-01-15] MEDS ORDERED: METHADONE HCL 10 MG TABLET (FOR DETOX USE ONLY) PO ONE (10:00)
[2019-01-15] MEDS: PRENATAL VITAMINS W/ FOLIC ACID TABLET (FP) PO SCH (10:36)
[2019-01-15] MEDS: HYDROCORTISONE 1% TOPICAL CREAM 30 GM TUBE TP SCH ×4 (10:36→22:24)
[2019-01-15] MEDS: NICOTINE 7 MG/24 HOURS TOPICAL PATCH TD SCH (10:36)
[2019-01-15] MEDS: METHOCARBAMOL 500 MG TABLET PO PRN ×2 (10:38→17:49)
--- NOTE | 2019-01-15 11:40 | PN ---
[facility] CIWA - CIWA Score Nausea/Vomitin-No Nausea/No Vomiting Muscle Tremors: 1-None Visible, but [place] Anxiety: 1-Mildly Anxious Agitation: 1-Slight > Activity Paroxysmal Sweats: No Perspiration Orientation: 0-Oriented Tacttile Disturbances: 0-None Auditory Disturbances: 0-None Visual Disturbances: 0-None Headache: 0-None Present CIWA-Ar Total Score: 3 S COWS - Scale Resting Pulse: 0= [place] 80 or Below Sweatin= No chills or Flushing Restless Observation: 1= Difficult to Sit Still Pupil Size: 0= Normal to Room Light Bone or Joint Aches: 1= Mild Discomfort Runny Nose/ Eye Tearin= None GI Upset > 30mins: 0= None Tremor Observation of Outstretched Hands: 0= None Yawning Observation: 0= None Anxiety or Irritability: 1=Feels Anxious/Irritable Goose Flesh Skin: 0=Smooth Skin COWS Score: 3 [facility] Progress Note (SOAP) Subjective: irritable agitation feeling better Objective: 01/15/19 11:39 Vital Signs Temperature 98.2 F 01/15/19 09:29 Pulse Rate 77 01/15/19 09:29 Respiratory Rate 18 01/15/19 09:29 Blood Pressure 112/50 L 01/15/19 09:29 O2 Sat by Pulse Oximetry (%) aaox3 ambulating no acute distress Assessment: 01/15/19 11:39 mild withdrawals Plan: complete with detox regimen d/c in am
[2019-01-15] MEDS ORDERED: FLU VACCINE QUAD 60 MCG/0.5 ML (MDV 19-20) IM ONE (12:00)
--- NOTE | 2019-01-15 14:46 | CONSULT ---
[facility] - Data Date of interview: 01/15/19 [facility] Identifying data: Readmission to [facility] for this 38 y/o AA female self- referred for detoxification (KAELA issues : alcohol, heroin, cocaine, cannabis, nicotine). Interviewed at [address] [place] [address]. Patient is single, mother of seven, domiciled , unemployed and supported by relatives. Substance Abuse History: Discussed with the patient. Details concordant with [facility] report as follows : Smoking history: Former smoker. Have you smoked in the past 12 months: No. Aproximately how many cigarettes per day: 20. If you are a former smoker, when did you quit?: 1 yr ago. Cigars Per Day: 0. Hx Chewing Tobacco Use: No. Initiated information on smoking cessation: Yes. 'Breaking Loose' booklet given: 01/11/19. - Substances abused. Heroin. Substance route: Inhalation. Frequency: Daily. Amount used: 50 bags. Age of first use: 20. Date of last use: 01/10/19. Marijuana/Hashish. Substance route: Smoking. Frequency: Daily. Amount used: 2 bags. Age of first use: 20. Date of last use: 09/12/18. PCP. Substance route: Smoking. Frequency: Daily. Amount used: 2 blunts. Age of first use: 22. Date of last use: 01/10/19. Alcohol. Substance route: Oral. Frequency: Daily. Amount used: 1 bottle of liquor. Age of first use: 38. Date of last use: 01/10 Medical History: Patient endorses good general health. Psychiatric History: Patient denies history of psychiatric hospitalizations, OPD care or suicide attempts. Physical/Sexual Abuse/Trauma History: Patient denies. Additional Comment: Urine drug screen results: THC-Marijuana, ANURADHA-Cocaine, FEN- Fentanyl, MOP-Opiates, BZO-Benzodiazepines. Noted. Mental Status Exam - Mental Status Exam Alert and Oriented to: Time, Place, Person Cognitive Function: Good Patient Appearance: Well Groomed Mood: Hopeful, Euthymic Affect: Appropriate, Normal Range Patient Behavior: Appropriate, Cooperative Speech Pattern: Clear, Appropriate Voice Loudness: Normal Thought Process: Intact, Goal Oriented Thought Disorder: Not Present Hallucinations: Denies Suicidal Ideation: Denies Homicidal Ideation: Denies Insight/Judgement: Poor Sleep: Poorly, Difficulty falling asleep Appetite: Good Gait/Station: Normal Psychiatric Findings - Problem List ([place] 1, 2,3) (1) Opioid dependence with withdrawal Current Visit: Yes Status: Acute (2) Alcohol abuse Current Visit: Yes Status: Chronic (3) Nicotine dependence Current Visit: Yes Status: Chronic Qualifiers: Nicotine product type: cigarettes Substance use status: uncomplicated Qualified Code(s): F17.210 - Nicotine dependence, cigarettes, uncomplicated (4) Marijuana dependence Current Visit: Yes Status: Chronic (5) Insomnia Current Visit: Yes Status: Chronic - Initial Treatment Plan Initial Treatment Plan: Psychoeducation. Sleep hygiene. Detoxification. MAT services discusssed in session. AA/NA meetings. Insomnia is addressed with trazodone 50 mg po hs (alternate hypnotic medications reviewed with patient; expresses preference for trazodone). Side effects/benefits dicussed. Verbal consent obtained from the patient. Observation.
[2019-01-15 21:50] VITALS: TEMP 98.1
[2019-01-15] MEDS ORDERED: traZODone HCL 50 MG TABLET (FP) PO SCH (22:00)
[2019-01-15] MEDS: THIAMINE HCL 100 MG TABLET (FP) PO SCH (22:23)
[2019-01-16] MEDS ORDERED: METHADONE HCL 5 MG TABLET (FOR DETOX USE ONLY) PO ONE (06:00)
[2019-01-16 09:45] VITALS: BP 103/53; PULSE 91
--- NOTE | 2019-01-16 15:07 | DS ---
[facility] Detox Discharge Summary Admission Date: 01/11/19 Discharge Date: 01/16/19 - History Present History: Alcohol Dependence, Opioid Dependence, Sedative Dependence Additional Comments: Patient successfully completed detox and discharged safely, patient refused inpatient rehab. Patient instructed to follow up with PCP within 1-2 weeks. Pertinent Past History: Denies pmhx - Physical Exam Results Vital Signs: Vital Signs Temperature 98.1 F 01/16/19 09:44 Pulse Rate 91 H 01/16/19 09:44 Respiratory Rate 16 01/16/19 09:44 Blood Pressure 103/53 L 01/16/19 09:44 O2 Sat by Pulse Oximetry (%) Pertinent Admission Physical Exam Findings: Withdrawal sxs Laboratory Tests 01/11/19 01/11/19 01/11/19 11:30 11:30 11:30 WBC 4.9 RBC 4.20 Hgb 10.9 Hct 34.1 MCV 81.2 MCH 25.9 MCHC 31.9 L RDW 16.7 H Plt Count 262 MPV 7.2 L Sodium 137 Potassium 4.4 Chloride 104 Carbon Dioxide 30 Anion Gap 3 L BUN 14.4 Creatinine 0.6 Est GFR (CKD-EPI)AfAm 134.96 Est GFR (CKD-EPI)NonAf 116.44 Random Glucose 87 Calcium 9.5 Total Bilirubin 0.7 AST 26 ALT 31 Alkaline Phosphatase 75 Total Protein 7.8 Albumin 4.2 RPR Titer Nonreactive HIV 1&2 Antibody Screen HIV P24 Antigen 01/11/19 11:30 WBC RBC Hgb Hct MCV MCH MCHC RDW Plt Count MPV Sodium Potassium Chloride Carbon Dioxide Anion Gap BUN Creatinine Est GFR (CKD-EPI)AfAm Est GFR (CKD-EPI)NonAf Random Glucose Calcium Total Bilirubin AST ALT Alkaline Phosphatase Total Protein Albumin RPR Titer HIV 1&2 Antibody Screen Negative HIV P24 Antigen Negative Labs reviewed - Treatment Hospital Course: Detox Protocol Followed, Detoxed Safely, Responded well, Discharged Condition Good - Medication Discharge Medications: Ambulatory Orders NK [No Known Home Medication] 09/13/18 - Diagnosis (1) Alcohol dependence with withdrawal, uncomplicated Status: Acute (2) PCP dependence Status: Chronic (3) Opioid dependence with withdrawal Status: Chronic (4) Marijuana dependence Status: Chronic - AMA Did Patient Leave Against Medical Advice: No (Instructed to follow up with PCP within 1-2 weeks)
== END 2019-01-16 10:00 | disposition home or self-care (01) | DRG 773 ==
LOC: YASAS 08:07 → Y6N 10:21
PROVIDERS: ADMIT Allergy & Immunology; ATTEND Allergy & Immunology
PROC: HZ2ZZZZ Detoxification Services for Substance Abuse Treatment (ICD-10-PCS; principal; 2019-01-09)
DX: F11.23 Opioid dependence with withdrawal (principal); F10.230 Alcohol dependence with withdrawal, uncomplicated; F16.20 Hallucinogen dependence, uncomplicated; F12.20 Cannabis dependence, uncomplicated; F17.210 Nicotine dependence, cigarettes, uncomplicated; G47.00 Insomnia, unspecified
CPT/HCPCS: 36415; 80053; 85027; 86593; 87389; 90732; G0008; G0009; Q2036

== ENCOUNTER 2019-02-25 09:09 | Inpatient (IN) | payer OTHER ==
[2019-02-25 09:43] VITALS: BMI 22.3
--- NOTE | 2019-02-25 10:11 | HP ---
COWS - Scale Resting Pulse: 1= [place] 81-100 Sweatin= Chills/Flushing Restless Observation: 1= Difficult to Sit Still Pupil Size: 0= Normal to Room Light Bone or Joint Aches: 2= Severe Diffuse Aches Runny Nose/ Eye Tearin= None GI Upset > 30mins: 2= Nausea/Diarrhea Tremor Observation: 1= Tremor [place], Not Seen Yawning Observation: 0= None Anxiety or Irritability: 2=Irritable/Anxious Goose Flesh Skin: 0=Smooth Skin COWS Score: 10 CIWA Score - Admission Criteria OASAS Guidelines: Admission for Medically Managed Detox: Requires at least one of the followin. CIWA greater than 12 2. Seizures within the past 24 hours 3. Delirium tremens within the past 24 hours 4. Hallucinations within the past 24 hours 5. Acute intervention needed for co occurring medical disorder 6. Acute intervention needed for co occurring psychiatric disorder 7. Severe withdrawal that cannot be handled at a lower level of care (continued vomiting, continued diarrhea, abnormal vital signs) requiring intravenous medication and/or fluids 8. Admitting History and Physical - Past Medical History ...LMP: 08/25/18 - Smoking History Smoking history: Former smoker Have you smoked in the past 12 months: Yes Aproximately how many cigarettes per day: 20 If you are a former smoker, when did you quit?: 1 yr ago - Alcohol/Substance Use Hx Alcohol Use: No Admission [facility] Allergies/Adverse Reactions: Allergies Allergy/AdvReac Type Severity Reaction Status Date / Time No Known Allergies Allergy Verified 02/25/19 09:29 History of Present Illness: pt here requesting detox from heroin use , claims 40-50 bags heroin / day via inhalation , first age of use early 20's , longest sobriety [id number] , rehab [facility] x 7 days , relapsed after d/c , latest use yesterday PCP : 2 bags / day denies other illicits etoh - denies recent use since previous detox tobacco : 1 ppd pmhx : denies denies SI / Hi lmp Dec 2018 upt neg 2019 ages [age],7,5,4,3 with maternal GM and her brother in [facility] Exam Limitations: Clinical Condition - Ebola screening Have you traveled outside of the country in the last 21 days: No Have you had contact with anyone from an Ebola affected area: No Do you have a fever: No - Review of Systems Constitutional: Loss of Appetite EENT: reports: Other (glasses , denies dysphagia) Respiratory: reports: No Symptoms reported Cardiac: reports: No Symptoms Reported GI: reports: See HPI, Diarrhea, Nausea, Poor Appetite : reports: No Symptoms Reported Musculoskeletal: reports: No Symptoms Reported Integumentary: reports: Dryness, Other (eczema- chronic) Neuro: reports: Headache Endocrine: reports: No Symptoms Reported Hematology: reports: No Symptoms Reported Psychiatric: reports: Orientated x3, Agitated, Anxious Patient History - Patient Medical History Hx Anemia: No Hx Asthma: No Hx Chronic Obstructive Pulmonary Disease (COPD): No Hx Cancer: No Hx Cardiac Disorders: No Hx Congestive Heart Failure: No Hx Hypertension: No Hx Hypercholesterolemia: No Hx Pacemaker: No HX Cerebrovascular Accident: No Hx Seizures: No Hx Dementia: No Hx Diabetes: No Hx Gastrointestinal Disorders: No Hx Liver Disease: No Hx Genitourinary Disorders: No Hx Sexually Transmitted Disorders: No Hx Renal Disease (ESRD): No Hx Thyroid Disease: No Hx Human Immunodeficiency Virus (HIV): No Hx Hepatitis C: No Hx Depression: No Hx Suicide Attempt: No Hx Bipolar Disorder: No Hx Schizophrenia: No - Patient Surgical History Past Surgical History: No Hx Neurologic Surgery: No Hx Cataract Extraction: No Hx Cardiac Surgery: No Hx Lung Surgery: No Hx Breast Surgery: No Hx Breast Biopsy: No Hx Abdominal Surgery: No Hx Appendectomy: No Hx Cholecystectomy: No Hx Genitourinary Surgery: No Hx Section: No Hx Orthopedic Surgery: No Anesthesia Reaction: No - PPD History Date: 09/15/18 Results: 0mm - Reproductive History Last Menstrual Period: 12/28/18 - Smoking Cessation Smoking history: Former smoker Have you smoked in the past 12 months: Yes Aproximately how many cigarettes per day: 20 If you are a former smoker, when did you quit?: 1 yr ago Cigars Per Day: 0 Hx Chewing Tobacco Use: No Initiated information on smoking cessation: Yes 'Breaking Loose' booklet given: 02/25/19 - Substances abused Heroin Substance route: Inhalation Frequency: Daily Amount used: 70 bags Age of first use: 20 Date of last use: 02/24/19 Marijuana/Hashish Substance route: Smoking Frequency: Daily Amount used: 2 bags Age of first use: 20 Date of last use: 09/12/18 PCP Substance route: Smoking Frequency: Daily Amount used: 2 blunts Age of first use: 22 Date of last use: 02/17/19 Alcohol Substance route: Oral Frequency: 1-2 times per week Amount used: 1 BOTTLE OF PATRON Age of first use: 38 Date of last use: 01/10/19 Admission Physical Exam BHS - Vital Signs Vital Signs: Vital Signs - 24 hr 02/25/19 02/25/19 09:37 09:47 Temperature 97.4 F L 97.4 F L Pulse Rate 87 87 Respiratory 20 20 Rate Blood Pressure 118/81 118/81 - Physical General Appearance: Yes: Mild Distress, Irritable, Anxious HEENTM: Yes: EOMI, Hearing grossly Normal, Normocephalic, Normal Voice Respiratory: Yes: Chest Non-Tender, Lungs Clear, Normal Breath Sounds, No Respiratory Distress, No Accessory Muscle Use Neck: Yes: No masses,lesions,Nodules, Trachea in good position Cardiology: Yes: Regular Rhythm, Regular Rate, S1, S2, Other (EKG 09/13/18 QTc 435 ms) Abdominal: Yes: Non Tender, Soft Back: Yes: Normal Inspection Musculoskeletal: Yes: Gait Steady Extremities: Yes: Normal Inspection, Normal Range of Motion, Non-Tender Neurological: Yes: Fully Oriented, Alert, Motor Strength 5/5 Integumentary: Yes: Dry, Warm, Rash (chronic eczema) - Diagnostic (1) Nicotine dependence Current Visit: Yes Status: Chronic Qualifiers: Nicotine product type: cigarettes Substance use status: uncomplicated Qualified Code(s): F17.210 - Nicotine dependence, cigarettes, uncomplicated (2) Opioid dependence with withdrawal Current Visit: Yes Status: Chronic Breathalyzer - Breathalyzer Breathalyzer: 0 Urine Drug Screen - Test Device Lot number: [id number] Expiration date: 10/13/20 - Control Is test valid?: Yes - Results Drug screen NEGATIVE: No Urine drug screen results: MOP-Opiates Inpatient Rehab Admission - Rehab Decision to Admit Inpatient rehab admission?: No
[2019-02-25] MEDS ORDERED: MENTHOL/PHENOL 1 EACH UD MM PRN (10:18)
[2019-02-25] MEDS ORDERED: IBUPROFEN 400 MG TABLET (FP) PO PRN (10:18)
[2019-02-25] MEDS ORDERED: BISMUTH SUBSALICYLATE 262 MG/15 ML BTL PO PRN (10:18)
[2019-02-25] MEDS ORDERED: METHOCARBAMOL 500 MG TABLET PO PRN (10:18)
[2019-02-25] MEDS ORDERED: NICOTINE POLACRILEX 2 MG GUM BUC PRN (10:18)
[2019-02-25] MEDS ORDERED: ACETAMINOPHEN 325 MG TABLET (FP) PO PRN ×2 (10:18)
[2019-02-25] MEDS ORDERED: hydrOXYzine PAMOATE 25 MG CAPSULE (FP) PO PRN (10:18)
[2019-02-25] MEDS ORDERED: MAGNESIUM HYDROX 2400MG/30ML ORAL SUSPENSION 30 ML CUP PO PRN (10:18)
[2019-02-25] MEDS ORDERED: MELATONIN 5 MG TABLETS PO PRN (10:18)
[2019-02-25] MEDS ORDERED: MAG HYDROX/AL HYDROX/SIMETH 30 ML UNIT-DOSE CUP PO PRN (10:18)
[2019-02-25] MEDS ORDERED: PROCHLORPERAZINE MALEATE 5 MG TABLET PO PRN (10:18)
[2019-02-25] MEDS ORDERED: MAGNESIUM CITRATE 300 ML BOTTLE PO PRN (10:18)
[2019-02-25] MEDS ORDERED: clonazePAM 0.5 MG TABLET PO PRN (10:21)
[2019-02-25] MEDS ORDERED: cloNIDine HCL 0.1 MG TABLET PO PRN (10:21)
[2019-02-25] MEDS ORDERED: COLLOIDAL OATMEAL 1 BAR EACH TP PRN (10:21)
[2019-02-25] MEDS ORDERED: METHADONE HCL 10 MG TABLET (FOR DETOX USE ONLY) PO ONE (10:45)
[2019-02-25 15:44] LABS: HEMATOCRIT 32.2 % (32.4-45.2); HEMOGLOBIN 10.6 GM/dL (10.7-15.3); MCH 26.8 pg (25.7-33.7); MCHC 32.9 g/dl (32.0-36.0); MEAN CELL VOLUME 81.5 fl (80-96); MEAN PLT VOLUME 6.9 fl (7.5-11.1); PLATELET COUNT 285 K/MM3 (134-434); RBC 3.95 M/mm3 (3.60-5.2); RDW 17.1 % (11.6-15.6); WHITE BLOOD COUNT 4.9 K/mm3 (4.0-10.0)
[2019-02-25 15:54] LABS: ALBUMIN 3.6 g/dl (3.4-5.0); BILIRUBIN,TOTAL 0.2 mg/dL (0.2-1); BLOOD UREA NITROGEN 14.1 mg/dL (7-18); CREATININE 0.7 mg/dL (0.55-1.3); POTASSIUM 4.2 mmol/L (3.5-5.1); TOT PROT 7.2 g/dl (6.4-8.2)
[2019-02-25] MEDS: THIAMINE HCL 100 MG TABLET (FP) PO SCH (21:38)
[2019-02-25] MEDS: MINERAL OIL/PETROLAT/WATER TOPICAL CREAM 113 GM JAR TP SCH (21:38)
[2019-02-26] MEDS ORDERED: METHADONE HCL 5 MG TABLET (FOR DETOX USE ONLY) ONE (09:15)
[2019-02-26] MEDS ORDERED: METHADONE HCL 10 MG TABLET (FOR DETOX USE ONLY) ONE (09:15)
[2019-02-26] MEDS ORDERED: METHADONE (DETOX) 20 MG, METHADONE (DETOX) 5 MG PO ONE (10:00)
[2019-02-26] MEDS: PRENATAL VITAMINS W/ FOLIC ACID TABLET (FP) PO SCH (10:23)
[2019-02-26] MEDS: MINERAL OIL/PETROLAT/WATER TOPICAL CREAM 113 GM JAR TP SCH ×2 (10:23→22:26)
[2019-02-26] MEDS: THIAMINE HCL 100 MG TABLET (FP) PO SCH (22:26)
[2019-02-27 06:50] VITALS: BP 135/69; PULSE 65; TEMP 98.1
[2019-02-27] MEDS ORDERED: METHADONE HCL 10 MG TABLET (FOR DETOX USE ONLY) PO ONE (10:00)
[2019-02-27] MEDS: MINERAL OIL/PETROLAT/WATER TOPICAL CREAM 113 GM JAR TP SCH (10:33)
[2019-02-27] MEDS: PRENATAL VITAMINS W/ FOLIC ACID TABLET (FP) PO SCH (10:33)
--- NOTE | 2019-02-27 18:22 | DS ---
[facility] Detox Discharge Summary Admission Date: 02/25/19 Discharge Date: 02/27/19 - History Present History: Cannabis Dependence, Opioid Dependence, Pcp Dependence Additional Comments: Patient demanded to leave AMA despite encouragement from staff to complete detox. Patient's female peer (RW) reported that patient gave her and a male peer (DJ) valium from her room then RW stated it wasn't valium but it was seroquel in which patient and DJ denies such allegation. Patient's room was searched by security staff but no contraband found. Patient initially had verbal altercation with female peer RW. Patient gave u-tox which was positive for methadone and opiate. Patient instructed to call 911 if feeling sick or withdrawal sxs and to see her PCP within 3 days. Pertinent Past History: Opioid dependence PCP dependence Nicotine dependence THC dependence - Physical Exam Results Vital Signs: Vital Signs Temperature 98.1 F 02/27/19 06:00 Pulse Rate 65 02/27/19 06:00 Respiratory Rate 18 02/27/19 06:00 Blood Pressure 135/69 02/27/19 06:00 O2 Sat by Pulse Oximetry (%) Pertinent Admission Physical Exam Findings: Withdrawal sxs Laboratory Tests 02/25/19 02/25/19 02/26/19 10:00 10:00 05:50 WBC 4.9 RBC 3.95 Hgb 10.6 L Hct 32.2 L MCV 81.5 MCH 26.8 MCHC 32.9 RDW 17.1 H Plt Count 285 MPV 6.9 L Sodium 134 L Potassium 4.2 Chloride 103 Carbon Dioxide 27 Anion Gap 4 L BUN 14.1 Creatinine 0.7 Est GFR (CKD-EPI)AfAm 127.39 Est GFR (CKD-EPI)NonAf 109.91 Random Glucose 83 Calcium 9.0 Total Bilirubin 0.2 AST 16 ALT 36 Alkaline Phosphatase 82 Total Protein 7.2 Albumin 3.6 HIV 1&2 Antibody Screen Negative HIV P24 Antigen Negative Labs reviewed: anemia, hyponatremia - Medication Discharge Medications: Ambulatory Orders NK [No Known Home Medication] 09/13/18 - Diagnosis (1) Anemia Status: Chronic (2) Hyponatremia Status: Acute (3) Marijuana dependence Status: Chronic (4) Nicotine dependence Status: Chronic Qualifiers: Nicotine product type: cigarettes Substance use status: uncomplicated Qualified Code(s): F17.210 - Nicotine dependence, cigarettes, uncomplicated (5) Opioid dependence with withdrawal Status: Acute (6) PCP dependence Status: Chronic - AMA Did Patient Leave Against Medical Advice: Yes (Instructed to call 911 JOEL if sick or withdrawal sxs)
[2019-02-28] MEDS ORDERED: METHADONE (DETOX) 10 MG, METHADONE (DETOX) 5 MG PO ONE (10:00)
[2019-03-01] MEDS ORDERED: METHADONE HCL 10 MG TABLET (FOR DETOX USE ONLY) PO ONE (10:00)
[2019-03-02] MEDS ORDERED: METHADONE HCL 5 MG TABLET (FOR DETOX USE ONLY) PO ONE (06:00)
== END 2019-02-27 12:40 | disposition left against medical advice (07) | DRG 770 ==
LOC: YASAS 09:09 → Y6N 10:36
PROVIDERS: ADMIT Allergy & Immunology; ATTEND Allergy & Immunology
PROC: HZ2ZZZZ Detoxification Services for Substance Abuse Treatment (ICD-10-PCS; principal; 2019-02-25)
DX: F11.23 Opioid dependence with withdrawal (principal); F16.20 Hallucinogen dependence, uncomplicated; F12.20 Cannabis dependence, uncomplicated; F17.210 Nicotine dependence, cigarettes, uncomplicated; D64.9 Anemia, unspecified; E87.1 Hypo-osmolality and hyponatremia
CPT/HCPCS: 36415; 80053; 81025; 85027; 87389

== ENCOUNTER 2019-04-10 19:15 | Emergency (ER) | payer OTHER ==
[2019-04-10 19:46] VITALS: BP 160/92; PULSE 96; TEMP 98.5; BMI 22.6
--- NOTE | 2019-04-10 20:32 | PDOC ---
History of Present Illness - General Chief Complaint: Substance Abuse Stated Complaint: POSSIBLE OVERDOSE Time Seen by Provider: 04/10/19 20:27 History Source: Patient Exam Limitations: No Limitations - History of Present Illness Initial Comments: 39 yo F with a hx of ETOH abuse, heroin abuse, PCP abuse, and COPD presents to the emergency department s/p suspected overdose per EMS. Per EMS, a call was placed for an apparent overdose. EMS crew found the patient to be excessively sleepy and was given a total of 4 mg of narcan. Per the patient, she snorted her usual PCP and denies acquiring her drugs from a new dealer. Currently, the patient feels well and states she wants to go home. Denies the following: fevers , chills, SOB, chest pain, nausea, vomiting, visual disturbance, abdominal pain , lightheadedness, headache, and leg pain/swelling. Allergies: NKDA Past History - Past Medical History Allergies/Adverse Reactions: Allergies Allergy/AdvReac Type Severity Reaction Status Date / Time No Known Allergies Allergy Verified 04/10/19 19:43 Home Medications: Ambulatory Orders NK [No Known Home Medication] 09/13/18 Anemia: No Asthma: No Cancer: No Cardiac Disorders: No CVA: No COPD: No CHF: No Dementia: No Diabetes: No GI Disorders: No Disorders: No HTN: No Hypercholesterolemia: No Kidney Stones: No Liver Disease: No Seizures: No Thyroid Disease: No - Surgical History Abdominal Surgery: No Appendectomy: No Cardiac Surgery: No Cholecystectomy: No Lung Surgery: No Neurologic Surgery: No Orthopedic Surgery: No - Reproductive History PID: No - Psycho Social/Smoking Cessation Hx Smoking History: Current every day smoker Have you smoked in the past 12 months: Yes Number of Cigarettes Smoked Daily: 20 If you are a former smoker, when did you quit?: 1 yr ago Cigars Per Day: 0 Information on smoking cessation initiated: Yes 'Breaking Loose' booklet given: 02/25/19 Hx Alcohol Use: No Drug/Substance Use Hx: Yes (heroin) Substance Use Type: Heroin, Marijuana Hx Substance Use Treatment: Yes Review of Systems - Review of Systems Able to Perform ROS?: Yes Is the patient limited Romansh proficient: No Constitutional: No: Chills, Diaphoresis, Fever, Weakness HEENTM: No: Eye Pain, Ear Pain, Nose Pain, Throat Pain, Mouth Pain Respiratory: No: Cough, Shortness of Breath, Hemoptysis Cardiac (ROS): No: Chest Pain, Lightheadedness, Palpitations, Chest Tightness ABD/GI: No: Constipated, Diarrhea, Nausea, Rectal Bleeding, Vomiting, Tarry Stools : No: Burning, Dysuria, Hematuria Musculoskeletal: No: Back Pain, Joint Pain, Neck Pain Integumentary: No: Bruising, Erythema, Rash Neurological: No: Headache, Numbness, Tingling Psychiatric: No: Change in Appetite Endocrine: No: Unexplained Weight Loss Hematologic/Lymphatic: No: Anemia *Physical Exam - Vital Signs Last Vital Signs Temp Pulse Resp BP Pulse Ox 98.5 F 96 H 18 160/92 100 04/10/19 19:44 04/10/19 19:44 04/10/19 19:44 04/10/19 19:44 04/10/19 19:44 - Physical Exam General Appearance: Yes: Nourished, Appropriately Dressed. No: Apparent Distress, Intoxicated HEENT: positive: EOMI, JOVAN, Normal Voice, Pharynx Normal, Hearing Grossly Normal, Other (poor dentition). negative: Pale Conjunctivae, Scleral Icterus (R ), Scleral Icterus (L), Muffled/Hoarse voice, Pharyngeal Erythema, Tonsillar Exudate, Tonsillar Erythema, Nasal Congestion, Rhinorrhea, Sinus Tenderness, Excessive drooling Neck: positive: Trachea midline, Supple. negative: Tender, Lymphadenopathy (R) , Lymphadenopathy (L), Tender lateral, Tender midline Respiratory/Chest: positive: Lungs Clear, Normal Breath Sounds. negative: Chest Tender, Respiratory Distress, Accessory Muscle Use, Crackles, Rales, Rhonchi, Stridor, Wheezing Cardiovascular: positive: Regular Rhythm, Regular Rate, S1, S2. negative: Systolic Murmur Gastrointestinal/Abdominal: positive: Normal Bowel Sounds, Flat, Soft. negative : Tender, Distended, Guarding, Rebound Lymphatic: negative: Adenopathy Musculoskeletal: positive: Normal Inspection. negative: CVA Tenderness, Vertebral Tenderness Extremity: positive: Normal Capillary Refill, Normal Inspection, Normal Range of Motion. negative: Tender, Swelling, Calf Tenderness Integumentary: positive: Normal Color, Dry, Warm. negative: Swelling, Ecchymosis Neurologic: positive: desktop support manager II-XII NML intact, Fully Oriented, Alert, Normal Mood/ Affect, Motor Strength 5/5 Medical Decision Making - Medical Decision Making 39 yo F with a hx of ETOH abuse, heroin abuse, PCP abuse, and COPD presents to the emergency department s/p suspected overdose per EMS. Per EMS, a call was placed for an apparent overdose. Initial vitals: Initial Vital Signs Temp Pulse Resp BP Pulse Ox 98.2 F 97 H 17 163/98 100 04/10/19 19:34 04/10/19 19:34 04/10/19 19:34 04/10/19 19:34 04/10/19 19:34 Work up: Patient is refusing to stay in the emergency department. clinically she is well appearing. A bed at [facility] for females was offered to her because of its availability for detox and the patient refused. The patient was able to ambulate on her own volition with her friend out of the emergency department. Discharge - Discharge Information Problems reviewed: Yes Clinical Impression/Diagnosis: Heroin abuse, PCP dependence Condition: Stable Disposition: HOME - Admission No - Follow up/Referral Referrals: [facility] [Provider Group] - Patient Discharge Instructions Patient Printed Discharge Instructions: DI for Drug Abuse and Drug Addiction Additional Instructions: You were seen in the emergency department for the evaluation of your overdose. Please return to the emergency department if you have worsening symptoms or new concerning symptoms. Please follow up with your primary medical doctor within 1 week after discharge. Please abstain from drugs. - Post Discharge Activity
--- NOTE | 2019-04-10 20:39 | PDOC ---
Attending Attestation - Resident Resident Name: RosalbaTrent - ED Attending Attestation I have performed the following: I have examined & evaluated the patient, The case was reviewed & discussed with the resident, I agree w/resident's findings & plan - HPI HPI: 04/10/19 21:08 Pt comes with heroin and LSD use. Pt's friend called EMS because she was sleepy and she required narcan. EMS brought her in. Pt is awake alert appears well and wants to fo home. Pt states that she feels fine. She has no job. She has 7 kids and her mom raises the kids. - Physicial Exam PE: 04/10/19 21:09 Heart lungs normal HEENT normal -poor dentition with caries and brokern missing teeth Neuro intact Abd/flank no pain - Medical Decision Making 04/10/19 21:10 Pt is ready to go [facility]. There is a bed at detox for females, however pt is refusing to go. Pt will be discharged home with her friend.
== END 2019-04-10 20:35 | disposition home or self-care (01) ==
LOC: JER 19:15
DX: F11.10 Opioid abuse, uncomplicated (principal); F16.20 Hallucinogen dependence, uncomplicated; F17.210 Nicotine dependence, cigarettes, uncomplicated
CPT/HCPCS: 99281-25

== ENCOUNTER 2019-10-17 19:58 | Emergency (ER) | payer OTHER ==
[2019-10-17 20:08] VITALS: BP 139/88; PULSE 94; TEMP 99.8; BMI 21.6
--- NOTE | 2019-10-17 20:10 | PDOC ---
Rapid Medical Evaluation Time Seen by Provider: 10/17/19 20:05 Medical Evaluation: Allergies Allergy/AdvReac Type Severity Reaction Status Date / Time No Known Allergies Allergy Verified 04/10/19 19:43 10/17/19 20:06 39 year old female BIBA for hypertension. as per EMS " call for unknown cardiac.." patient reports that she was trying to get admitted for detox for PCP, crack, heroin Last Vital Signs Temp Pulse Resp BP Pulse Ox 99.8 F H 94 H 20 139/88 99 10/17/19 20:06 10/17/19 20:06 10/17/19 20:06 10/17/19 20:06 10/17/19 20:06 Pe: patient alert awake. sleepy. A: substance abuse P: patient to the ER for further management of care Discharge Disposition - Diagnosis Substance abuse - Referrals - Patient Instructions - Post Discharge Activity
[2019-10-17 21:28] LABS: BASO % 0.4 % (0-2.0); EOS % 3.5 % (0-4.5); HEMOGLOBIN 9.6 GM/dL (10.7-15.3); MCH 24.3 pg (25.7-33.7); MEAN CELL VOLUME 75.9 fl (80-96); MEAN PLT VOLUME 6.7 fl (7.5-11.1); MONO % 8.8 % (3.8-10.2); NEUT % 57.3 % (42.8-82.8); PLATELET COUNT 192 K/MM3 (134-434); RBC 3.96 M/mm3 (3.60-5.2); WHITE BLOOD COUNT 4.7 K/mm3 (4.0-10.0)
[2019-10-17 21:36] LABS: INR 0.97 (0.83-1.09); PROTHROMBIN TIME (PATIENT) 11.5 SEC (9.7-13.0)
--- NOTE | 2019-10-17 21:43 | PDOC ---
History of Present Illness - General Chief Complaint: Substance Abuse Stated Complaint: SUBSTANCE ABUSE Time Seen by Provider: 10/17/19 20:05 - History of Present Illness Initial Comments: 10/17/19 21:43 39-year-old female sent here [facility] for admission blood work for detox from polysubstance abuse she denies taking anything prior to arrival. Past History - Medical History Allergies/Adverse Reactions: Allergies Allergy/AdvReac Type Severity Reaction Status Date / Time No Known Allergies Allergy Verified 04/10/19 19:43 Home Medications: Ambulatory Orders NK [No Known Home Medication] 09/13/18 Anemia: No Asthma: No Cancer: No Cardiac Disorders: No CVA: No COPD: No CHF: No Dementia: No Diabetes: No GI Disorders: No Disorders: No HTN: No Hypercholesterolemia: No Kidney Stones: No Liver Disease: No Seizures: No Thyroid Disease: No - Surgical History Abdominal Surgery: No Appendectomy: No Cardiac Surgery: No Cholecystectomy: No Lung Surgery: No Neurologic Surgery: No Orthopedic Surgery: No - Reproductive History PID: No - Psycho-Social/Smoking History Smoking History: Current every day smoker Have you smoked in the past 12 months: Yes Number of Cigarettes Smoked Daily: 20 If you are a former smoker, when did you quit?: 1 yr ago Cigars Per Day: 0 Information on smoking cessation initiated: No 'Breaking Loose' booklet given: 02/25/19 - Substance Abuse Hx (Audit-C & DAST Scrn) How often the patient has a drink containing alcohol: Never Score: In Men: 4 or > Positive; In Women: 3 or > Positive: 0 Screen Result (Pos requires Nsg. Audit-10AR): Negative Review of Systems - Review of Systems ABD/GI: No: Nausea, Vomiting *Physical Exam - Vital Signs Last Vital Signs Temp Pulse Resp BP Pulse Ox 99.8 F H 94 H 20 139/88 99 10/17/19 20:06 10/17/19 20:06 10/17/19 20:06 10/17/19 20:06 10/17/19 20:06 - Physical Exam General Appearance: Yes: Nourished, Appropriately Dressed. No: Apparent Distress HEENT: positive: Symmetrical Neck: positive: Supple Respiratory/Chest: positive: Normal Breath Sounds. negative: Respiratory Distress Musculoskeletal: positive: Normal Inspection Extremity: positive: Normal Inspection Integumentary: positive: Normal Color Neurologic: positive: Fully Oriented, Alert, Normal Mood/Affect ED Treatment Course - LABORATORY CBC & Chemistry Diagram: 10/17/19 21:11 10/17/19 21:11 - ADDITIONAL ORDERS Additional order review: Laboratory Results 10/17/19 21:11 PT with INR 11.50 INR 0.97 10/17/19 21:11 RBC 3.96 MCV 75.9 L MCHC 32.0 RDW 18.0 H MPV 6.7 L Neutrophils % 57.3 D Lymphocytes % 30.0 D Monocytes % 8.8 Eosinophils % 3.5 Basophils % 0.4 Medical Decision Making - Medical Decision Making 10/17/19 22:19 Female beds available at [facility] Patient except Discharge - Discharge Information Problems reviewed: Yes Clinical Impression/Diagnosis: Substance abuse Condition: Stable Disposition: [facility] - Admission No - Follow up/Referral - Patient Discharge Instructions - Post Discharge Activity
[2019-10-17 21:52] LABS: EPI CELLS >36 /uL (0-25.1); HYALINE CASTS 1 /uL (0-3.1); URINE APPEARANCE CLEAR; URINE BACTERIA 1024 /uL (0-1359); URINE BILIRUBIN NEGATIVE (NEGATIVE); URINE COLOR YELLOW; URINE GLUCOSE (UA) NEGATIVE (NEGATIVE); URINE KETONE NEGATIVE (NEGATIVE); URINE LEUK ESTERASE TRACE (NEGATIVE); URINE NITRITE NEGATIVE (NEGATIVE); URINE PROTEIN NEGATIVE (NEGATIVE); URINE RBC 4 /uL (0-23.9); URINE UROBILINOGEN 0.2 mg/dL (0.2-1.0); URINE WBC 47 /uL (0-25.8)
[2019-10-17 21:55] LABS: ALK PHOS 71 U/L (45-117); ANION GAP 6 MMOL/L (8-16); BILIRUBIN,TOTAL 0.3 mg/dL (0.2-1); BLOOD UREA NITROGEN 13.2 mg/dL (7-18); CALCIUM 8.9 mg/dL (8.5-10.1); CHLORIDE 108 mmol/L (98-107); CO2 26 mmol/L (21-32); CREATININE 0.8 mg/dL (0.55-1.3); GLUCOSE,RANDOM 100 mg/dL (74-106); POTASSIUM 4.2 mmol/L (3.5-5.1); SGOT/AST 21 U/L (15-37); SGPT/ALT 25 U/L (13-61); SODIUM 140 mmol/L (136-145); TOT PROT 7.6 g/dl (6.4-8.2)
[2019-10-17 22:02] LABS: COCAINE, UR NEGATIVE ng/ml (CUTOFF=300); METHADONE, UR NEGATIVE ng/ml (CUTOFF=300); URINE AMPHETAMINES NEGATIVE ng/ml (CUTOFF=500); URINE BARBITURATES NEGATIVE ng/ml (CUTOFF=200); URINE BENZODIAZEPINES NEGATIVE ng/ml (CUTOFF=200)
[2019-10-17 22:05] LABS: OPIATES, URI POSITIVE ng/ml (CUTOFF=300)
[2019-10-17 22:06] LABS: PHENCYCLIDINE,URINE POSITIVE ng/ml (CUTOFF=25)
--- NOTE | 2019-10-18 10:44 | EKG ---
Test Reason : Blood Pressure : / mmHG Vent. Rate : 087 BPM Atrial Rate : 087 BPM P-R Int : 174 ms QRS Dur : 098 ms QT Int : 370 ms P-R-T Axes : 045 042 036 degrees QTc Int : 445 ms NORMAL SINUS RHYTHM POSSIBLE LEFT ATRIAL ENLARGEMENT LEFT VENTRICULAR HYPERTROPHY NONSPECIFIC T WAVE ABNORMALITY ABNORMAL ECG NO PREVIOUS ECGS AVAILABLE Confirmed by Michael Bran ([id number]) on 10/18/2019 10:43:52 AM Referred By: Confirmed By:Michael Bran
== END 2019-10-17 22:00 ==
LOC: JER 19:58
DX: F19.10 Other psychoactive substance abuse, uncomplicated (principal)
CPT/HCPCS: 36415; 80053; 80307; 81003; 82550; 82553; 84484; 84703; 85025; 85610; 93005; 93010; 99285-25

== ENCOUNTER 2022-05-24 20:42 | Emergency (ER) | payer OTHER ==
[2022-05-24 20:48] VITALS: BP 184/103; PULSE 95; RESP 20; BMI 32.2
[2022-05-24 20:49] VITALS: TEMP 98.2
[2022-05-24] MEDS ORDERED: KETOROLAC TROMETHAMINE 15 MG/ML VIAL IM ONE (21:28)
[2022-05-24] MEDS ORDERED: KETOROLAC TROMETHAMINE 15 MG/ML VIAL ONE (21:32)
== END 2022-05-24 21:49 | disposition home or self-care (01) ==
LOC: JER 20:42
PROC: 3E0233Z Introduction of Anti-inflammatory into Muscle, Percutaneous Approach (ICD-10-PCS; principal; 2022-05-24)
DX: S42.202D Unspecified fracture of upper end of left humerus, subsequent encounter for fracture with routine healing (principal); W19.XXXA Unspecified fall, initial encounter
CPT/HCPCS: 73030-TC-LT-FY; 99284-25